=== PATIENT | female | born 1955 | race Caucasian/White ===

== ENCOUNTER 2023-05-22 15:41 | Emergency (ER) | payer MEDICARE ==
[2023-05-22 16:18] VITALS: TEMP 97.7
[2023-05-22] MEDS ORDERED: SODIUM CHLORIDE 0.9% 1,000 ML IV STA (16:32)
--- NOTE | 2023-05-22 16:32 | ED ---
Recheck HPI - General Chief Complaint: Urogenital Stated Complaint: UTI Time Seen by Provider: 05/22/23 16:32 Source: patient, RN notes reviewed, old records reviewed Mode of arrival: ambulatory Limitations: no limitations - History of Present Illness Initial Comments: This is a 67-year-old female to the emergency department today for evaluation of what feels like urinary tract infection with history of same. Patient has no doctor in the area that is able to get her in this week and she presents to the emergency department for evaluation of persistent UTI dysuria without fever MD Complaint: abnormal lab -: days(s) Returns Today for: Called Because of Abnormal Lab/Test, persistent/worsening pain related to initial visit Symptoms Since Prior Visit: no new symptoms Context: planned re-check Associated Symptoms: none Treatments Prior to Arrival: other (0) - Related Data Home Medications Medication Instructions Recorded Confirmed Atorvastatin [Lipitor] 10 mg PO HS 05/22/23 05/22/23 FLUoxetine HCL [PROzac] 10 mg PO DAILY 05/22/23 05/22/23 lisinopriL [Zestril] 10 mg PO DAILY 05/22/23 05/22/23 metFORMIN HCL 1,000 mg PO BID 05/22/23 05/22/23 Previous Rx's Medication Instructions Recorded Nitrofurantoin Monohyd/M-Cryst 100 mg PO Q12HR #10 cap 05/22/23 [Macrobid] Allergies Allergy/AdvReac Type Severity Reaction Status Date / Time No Known Allergies Allergy Verified 05/22/23 16:56 Review of Systems ROS Statement: Those systems with pertinent positive or pertinent negative responses have been documented in the HPI. ROS Other: All systems not noted in ROS Statement are negative. Past Medical History Past Medical History: COPD, Diabetes Mellitus Past Surgical History: Hysterectomy, Tonsillectomy Past Psychological History: No Psychological Hx Reported Smoking Status: Former smoker Past Alcohol Use History: Rare Past Drug Use History: None Reported General Exam Limitations: no limitations General appearance: alert, in no apparent distress Head exam: Present: atraumatic, normocephalic, normal inspection Eye exam: Present: normal appearance, PERRL, EOMI. Absent: scleral icterus, conjunctival injection, periorbital swelling ENT exam: Present: normal exam, mucous membranes moist Neck exam: Present: normal inspection. Absent: tenderness, meningismus, lymphadenopathy Respiratory exam: Present: normal lung sounds bilaterally. Absent: respiratory distress, wheezes, rales, rhonchi, stridor Cardiovascular Exam: Present: regular rate, normal rhythm, normal heart sounds. Absent: systolic murmur, diastolic murmur, rubs, gallop, clicks GI/Abdominal exam: Present: soft, normal bowel sounds. Absent: distended, tenderness, guarding, rebound, rigid Extremities exam: Present: normal inspection, full ROM, normal capillary refill. Absent: tenderness, pedal edema, joint swelling, calf tenderness Back exam: Present: normal inspection Neurological exam: Present: alert, oriented X3, CN II-XII intact Psychiatric exam: Present: normal affect, normal mood Skin exam: Present: warm, dry, intact, normal color. Absent: rash Course Vital Signs 05/22/23 05/22/23 15:59 18:17 Temperature 97.7 F Pulse Rate 82 79 Respiratory 20 18 Rate Blood Pressure 136/50 132/64 O2 Sat by Pulse 94 L 96 Oximetry - Reevaluation(s) Reevaluation #1: 05/22/23 18:01 Medical records reviewed Reevaluation #2: 05/22/23 18:01 Patient has no change in symptoms Reevaluation #3: 05/22/23 18:01 Patient informed results questions answered Reevaluation #4: 05/22/23 18:01 Was pt. sent in by a medical professional or institution (TOBY Campa, ACCOUNT RESOLUTION SPECIALIST, urgent care, hospital, or snf...) When possible be specific @ -no Did you speak to anyone other than the patient for history (EMS, parent, family, police, friend...)? What history was obtained from this source @ -no Did you review nursing and triage notes (agree or disagree)? Why? @ -agree Are old charts reviewed (outside hosp., previous admission, EMS record, old EKG, old radiological studies, urgent care reports/EKG's, snf records)? Report findings @ -yes Differential Diagnosis (chest pain, altered mental status, abdominal pain women, abdominal pain men, vaginal bleeding, weakness, fever, dyspnea, syncope, headache, dizziness, GI bleed, back pain, seizure, CVA, palpatations, mental health, musculoskeletal)? @ -prior EKG interpreted by me (3pts min.). @ -no X-rays interpreted by me (1pt min.). @ -no CT interpreted by me (1pt min.). @ -no U/S interpreted by me (1pt. min.). @ -no What testing was considered but not performed or refused? (CT, X-rays, U/S, labs)? Why? @ -none What meds were considered but not given or refused? Why? @ -none Did you discuss the management of the patient with other professionals (professionals i.e. , PA, ACCOUNT RESOLUTION SPECIALIST, lab, RT, psych nurse, social media content manager, offc spec, teacher, fundraising officer, case packer)? Give summary @ -no Was smoking cessation discussed for >3mins.? @ -no Was critical care preformed (if so, how long)? @ -no Were there social determinants of health that impacted care today? How? (Homelessness, low income, unemployed, alcoholism, drug addiction, t ransportation, low edu. Level, literacy, decrease access to med. care, correction, rehab)? @ -none Was there de-escalation of care discussed even if they declined (Discuss DNR or withdrawal of care, Hospice)? DNR status @ -no What co-morbidities impacted this encounter? (DM, HTN, Smoking, COPD, CAD, Cancer, CVA, ARF, Chemo, Hep., AIDS, mental health diagnosis, sleep apnea, morbid obesity)? @ -none Was patient admitted / discharged? Hospital course, mention meds given and route, prescriptions, significant lab abnormalities, going to OR and other pertinent info. @ - 67 female to the emergency department for evaluation of urinary tract infection symptoms. Patient replacement antibiotics and can be discharged home Discharge Undiagnosed new problem with uncertain prognosis? @ -no Drug Therapy requiring intensive monitoring for toxicity (Heparin, Nitro, Insulin, Cardizem)? @ -no Were any procedures done? @ -no Diagnosis/symptom? @ -UTI Acute, or Chronic, or Acute on Chronic? @ -Acute Uncomplicated (without systemic symptoms) or Complicated (systemic symptoms)? @ -Complicated Side effects of treatment? @ -no Exacerbation, Progression, or Severe Exacerbation? @ -exacerbation Poses a threat to life or bodily function? How? (Chest pain, USA, CT, pneumonia, PE, COPD, DKA, ARF, appy, cholecystitis, CVA, Diverticulitis, Homicidal, Suicidal, threat to staff... and all critical care pts) @ -No Medical Decision Making - Medical Decision Making 67 female to the emergency department for evaluation of urinary tract infection symptoms. Patient replacement antibiotics and can be discharged home - Lab Data Lab Results 05/22/23 Range/Units 16:41 Urine Color [place] Urine Appearance Clear (Clear) Urine RBC 10 H (0-5) /hpf Urine WBC >182 H (0-5) /hpf Ur Squamous Epith Cells 2 (0-4) /hpf Uric Acid Crystals Many H (None) /hpf Amorphous Sediment Rare H (None) /hpf Urine Bacteria Rare H (None) /hpf Urine Mucus Rare H (None) /hpf Disposition Clinical Impression: Urinary tract infection Disposition: HOME SELF-CARE Condition: Good Instructions (If sedation given, give patient instructions): Urinary Tract Infection in Women (ED) Prescriptions: Nitrofurantoin Monohyd/M-Cryst [Macrobid] 100 mg PO Q12HR #10 cap Is patient prescribed a controlled substance at d/c from ED?: No Referrals: None,Stated [Primary Care Provider] - 1-2 days Time of Disposition: 18:00
[2023-05-22 17:37] LABS: Amorphous Sediment,Urine Rare /hpf; Bacteria,Urine Rare /hpf; Mucus,Urine Rare /hpf; RBC,Urine 10 /hpf (0-5); Squamous Epithelial Cell,Urine 2 /hpf (0-4); Uric Acid Crystals,Urine Many /hpf; WBC,Urine >182 /hpf (0-5)
[2023-05-22 17:38] LABS: Appearance,Urine Clear (Clear); Color,Urine Orange
[2023-05-22] MEDS ORDERED: NITROFURANTOIN MONOHYD/M-CRYST 100 MG CAP PO STA (18:11)
[2023-05-22 18:26] VITALS: BP 132/64; PULSE 79; RESP 18
== END 2023-05-22 18:17 | disposition home or self-care (01) ==
LOC: EC 15:41
DX: N39.0 Urinary tract infection, site not specified (principal); E11.9 Type 2 diabetes mellitus without complications; J44.9 Chronic obstructive pulmonary disease, unspecified; Z87.891 Personal history of nicotine dependence; Z79.84 Long term (current) use of oral hypoglycemic drugs; Z79.899 Other long term (current) drug therapy
CPT/HCPCS: 81001; 99284

== ENCOUNTER → 2023-10-20 | Outpatient (CLI) | payer MEDICARE ==
--- NOTE | 2023-10-20 16:20 | CTL ---
EXAMINATION TYPE: CT Low Dose Lung DATE OF EXAM ORDERED: 10/20/2023 HISTORY: . Lung cancer screening CT DLP: 91.[address] CTDI: 2.6 mGy Automated exposure control for dose reduction was used. SCREENING VISIT: Initial. COMPARISON: None available. TECHNIQUE: Low dose computed tomography scan was performed through the chest at 1 mm thick sections a nd reconstructed images in multiple planes at 1 mm and [address] DIAGNOSTIC QUALITY: Satisfactory FINDINGS: LUNG NODULES: LUNGS: COPD: Severity: Mild upper lobe predominant centrilobular emphysema. Fibrosis: Severity: None Lymph nodes: No adenopathy. Other findings: RIGHT PLEURAL SPACE: Effusion: None Calcification: None Thickening: None Pneumothorax: None LEFT PLEURAL SPACE: Effusion: None Calcification: None Thickening: None Pneumothorax: None HEART: Heart Size: Normal Coronary Calcification: There are moderate coronary artery calcifications. Mild vascular calcificatio n is seen within the thoracic aorta without evidence of aneurysmal dilation Pericardial Effusion: None OTHER FINDINGS: Upper abdomen: None Bony thorax: None Supraclavicular region: None Other: None IMPRESSION: 1. Negative lung cancer screening examination for significant pulmonary nodules. 2. Mild emphysema. 3. Moderate coronary artery calcification. CT LUNG RAD AND CT CHEST RECOMMENDATION: Lung-Rad 1 Negative: Continue annual screening with LDCT in 12 months.
== END | disposition home or self-care (01) ==
LOC: RADCTMAIN 15:31
PROVIDERS: ATTEND Family Medicine
DX: Z12.2 Encounter for screening for malignant neoplasm of respiratory organs (principal); J43.2 Centrilobular emphysema; I25.10 Atherosclerotic heart disease of native coronary artery without angina pectoris; Z87.891 Personal history of nicotine dependence
CPT/HCPCS: 71271

== ENCOUNTER → 2023-10-20 | Outpatient (CLI) | payer MEDICARE ==
--- NOTE | 2023-10-21 15:57 | XR ---
EXAMINATION TYPE: XR thoracic spine 3 views DATE OF EXAM: 10/20/2023 COMPARISON: NONE HISTORY: 68-year-old female pain, rule out RA. M47.814 SPONDYLOSIS W/O MYELOPATHY OR RADICULOPATH FINDINGS: 12 rib-bearing thoracic vertebral bodies are present. All pedicles are visualized. There is moderate degenerative disc disease mid to lower thoracic spine with a few levels of anterior bridgin g endplate spondylosis in the lower thoracic spine. Vertebral body heights are preserved and alignmen t is maintained. Additional moderate spondylotic changes in the visualized lower cervical spine. IMPRESSION: Moderate degenerative disc disease mid to lower thoracic spine and also within the visualized lower c ervical spine. No vertebral compression collapse or malalignment.
== END | disposition home or self-care (01) ==
LOC: RADXRMAIN 15:33
PROVIDERS: ATTEND Family Medicine
DX: M51.34 Other intervertebral disc degeneration, thoracic region (principal); M47.814 Spondylosis without myelopathy or radiculopathy, thoracic region
CPT/HCPCS: 72070

== ENCOUNTER 2023-11-13 16:14 | Emergency (ER) | payer MEDICARE ==
[2023-11-13] MEDS: SODIUM CHLORIDE 0.9% 500 ML 500 ML IV STA (17:25)
[2023-11-13] MEDS: methylPREDNISolone SOD SUCCI 125 MG/2 ML VIAL IV STA (17:26)
[2023-11-13 17:27] VITALS: BP 167/72; PULSE 74; RESP 18; TEMP 97.8
[2023-11-13 17:27] LABS: Amorphous Sediment,Urine Rare /hpf; Appearance,Urine Cloudy (Clear); Bacteria,Urine Rare /hpf; Bilirubin,Urine Negative (Negative); Blood,Urine Trace (Negative); Color,Urine Dark Yellow; Glucose,Urine (UA) Negative (Negative); Ketones,Urine Negative (Negative); Leukocyte Esterase,Urine Large (Negative); Mucus,Urine Rare /hpf; Nitrite,Urine Negative (Negative); PH, Urine 7.5 (5.0-8.0); Protein,Urine Trace (Negative); RBC,Urine 2 /hpf (0-5); Specific Gravity,Urine 1.017 (1.001-1.035); Urobilinogen,Urine <2.0 mg/dL (<2.0); WBC,Urine >182 /hpf (0-5)
[2023-11-13 17:33] LABS: Basophils # (A) 0.1 k/uL (0-0.2); Basophils % (A) 1 %; Eosinophils # (A) 0.2 k/uL (0-0.7); Eosinophils % (A) 3 %; HCT 36.7 % (34.0-46.0); HGB 11.8 gm/dL (11.4-16.0); Lymphocytes # (A) 2.2 k/uL (1.0-4.8); Lymphocytes % (A) 32 %; MCH 30.4 pg (25.0-35.0); MCHC 32.2 g/dL (31.0-37.0); MCV 94.7 fL (80.0-100.0); Mean Platelet Volume 7.4; Monocytes # (A) 0.5 k/uL (0-1.0); Monocytes % (A) 8 %; Neutrophils # (A) 3.6 k/uL (1.3-7.7); Neutrophils % (A) 53 %; Platelet Count 393 k/uL (150-450); RBC 3.87 m/uL (3.80-5.40); WBC 6.7 k/uL (3.8-10.6)
[2023-11-13 17:34] LABS: INR 0.9 (<1.2)
[2023-11-13 17:35] LABS: Partial Thromboplastin Time 27.7 sec (22.0-30.0); Prothrombin Time 9.7 sec (10.0-12.5)
--- NOTE | 2023-11-13 17:40 | XR ---
EXAMINATION TYPE: XR chest 2V DATE OF EXAM: 11/13/2023 COMPARISON: NONE HISTORY: Shortness of breath TECHNIQUE: Frontal and lateral views of the chest are obtained. FINDINGS: Scattered senescent parenchymal changes noted. Hyperinflation compatible with COPD. No evidence for infiltrate. No evidence for atelectasis. Heart size is stable. Mediastinal structures are stable and grossly unremarkable. No evidence for hilar prominence. Degenerative changes dorsal spine. IMPRESSION: 1. No evidence for acute pulmonary disease.
[2023-11-13 17:42] LABS: ALT 24 U/L (4-34); AST 27 U/L (14-36); African American GFR (CKD) >90 (>60 ml/min/1.73 sqM); Albumin 4.6 g/dL (3.5-5.0); Alkaline Phosphatase 92 U/L (38-126); Anion Gap 9 mmol/L; Blood Urea Nitrogen 23 mg/dL (7-17); Calcium 9.9 mg/dL (8.4-10.2); Carbon Dioxide 26 mmol/L (22-30); Chloride 104 mmol/L (98-107); Glucose 94 mg/dL (74-99); Magnesium 1.6 mg/dL (1.6-2.3); Non-African American GFR(CKD) >90 (>60 ml/min/1.73 sqM); Potassium 4.5 mmol/L (3.5-5.1); Sodium 139 mmol/L (137-145); Total Bilirubin 0.6 mg/dL (0.2-1.3); Total Protein 7.2 g/dL (6.3-8.2)
[2023-11-13 17:49] LABS: NT-Pro-B-Type Natriuretic Pept 178 pg/mL
--- NOTE | 2023-11-13 18:05 | ED ---
General Adult HPI - General Chief complaint: Shortness of Breath Stated complaint: Chest Pain Time Seen by Provider: 11/13/23 16:44 Source: patient, RN notes reviewed, old records reviewed Mode of arrival: wheelchair Limitations: no limitations - History of Present Illness Initial comments: Patient is a 68-year-old female past medical history remarkable for emphysema, COPD, diabetes who presents emergency department complaining of 2 primary complaints. Sent by her primary care provider for cardiac workup and screening D-dimer. Patient believes she has a UTI and has been having increased shortness of breath with a nonproductive cough. Denies any lower extremity swelling. Denies any abdominal pain, nausea, vomiting. Endorses dysuria and increased frequency. Denies any significant chest pain but states she occasionally has tightness. Was sent by PCP for cardiac workup. - Related Data Home Medications Medication Instructions Recorded Confirmed Atorvastatin [Lipitor] 10 mg PO HS 05/22/23 11/13/23 FLUoxetine HCL [PROzac] 10 mg PO DAILY 05/22/23 11/13/23 lisinopriL [Zestril] 10 mg PO HS 05/22/23 11/13/23 metFORMIN HCL 1,000 mg PO BID 05/22/23 11/13/23 Previous Rx's Medication Instructions Recorded Albuterol Inhaler [Ventolin Hfa 1 - 2 puff INHALATION Q6H PRN #1 11/13/23 Inhaler] each levoFLOXacin 500 mg PO DAILY 14 Days #14 tab 11/13/23 predniSONE [Deltasone] 40 mg PO DAILY 5 Days #10 tab 11/13/23 Allergies Allergy/AdvReac Type Severity Reaction Status Date / Time No Known Allergies Allergy Verified 11/13/23 17:20 Review of Systems ROS Statement: Those systems with pertinent positive or pertinent negative responses have been documented in the HPI. Review of Systems: CONST: Denies fever EYES: Denies blurry vision ENT: Endorses nasal congestion C/V: Denies Chest pain RESP: Endorses dyspnea GI: Denies abdominal pain : Endorses dysuria SKIN: Denies rash. MSK: Denies joint pain. NEURO: Denies headache ROS Other: All systems not noted in ROS Statement are negative. Past Medical History Past Medical History: COPD, Diabetes Mellitus History of Any Multi-Drug Resistant Organisms: None Reported Past Surgical History: Hysterectomy, Tonsillectomy Past Psychological History: Depression Smoking Status: Former smoker Past Alcohol Use History: Rare Past Drug Use History: None Reported General Exam - General Exam Comments Initial Comments: General: Appears in no acute distress. HEAD: Normal with no signs of head trauma. EYES: PERRLA, EOMI, conjunctiva normal, no discharge. ENT: Hearing grossly intact, normal oropharynx. RESPIRATORY: Bilateral end expiratory wheezing. No hypoxia. No increased work of breathing. C/V: Regular rate and rhythm. S1 and S2 auscultated, no edema, peripheral pulses 2+ and intact throughout ABD: Abd is soft, nontender, nondistended EXT: Normal range of motion, no obvious deformity SKIN: No rashes or lesions observed on exposed skin. NEURO: Alert and oriented x 4. Limitations: no limitations Course Vital Signs 11/13/23 16:15 Temperature 97.8 F Pulse Rate 74 Respiratory 18 Rate Blood Pressure 167/72 O2 Sat by Pulse 95 Oximetry Medical Decision Making - Medical Decision Making Was pt. sent in by a medical professional or institution (, PA, SEWER LINE PHOTO INSPECTOR, urgent care, hospital, or fpc...) When possible be specific @ -No Did you speak to anyone other than the patient for history (EMS, parent, family, police, friend...)? What history was obtained from this source @ -No Did you review nursing and triage notes (agree or disagree)? Why? @ -I reviewed and agree with nursing and triage notes Were old charts reviewed (outside hosp., previous admission, EMS record, old EKG, old radiological studies, urgent care reports/EKG's, fpc records)? Report findings @ -Old charts reviewed. Differential Diagnosis (chest pain, altered mental status, abdominal pain women, abdominal pain men, vaginal bleeding, weakness, fever, dyspnea, syncope, headache, dizziness, GI bleed, back pain, seizure, CVA, palpatations, mental health, musculoskeletal)? @ -COPD, COVID, flu, RSV. This list is not all inclusive. EKG interpreted by me (3pts min.). @ -As above X-rays interpreted by me (1pt min.). @ -Chest x-ray shows no obvious acute cardiopulmonary process. CT interpreted by me (1pt min.). @ -None done U/S interpreted by me (1pt. min.). @ -None done What testing was considered but not performed or refused? (CT, X-rays, U/S, labs)? Why? @ -None What meds were considered but not given or refused? Why? @ -None Did you discuss the management of the patient with other professionals (professionals i.e. , PA, SEWER LINE PHOTO INSPECTOR, lab, RT, psych nurse, social work administrator, molding plasterer, teacher, home school liaison officer, telehealth case manager)? Give summary @ -No Was smoking cessation discussed for >3mins.? @ -No Was critical care preformed (if so, how long)? @ -No Were there social determinants of health that impacted care today? How? (Homeles sness, low income, unemployed, alcoholism, drug addiction, transportation, low edu. Level, literacy, decrease access to med. care, longterm, rehab)? @ -No Was there de-escalation of care discussed even if they declined (Discuss DNR or withdrawal of care, Hospice)? DNR status @ -No What co-morbidities impacted this encounter? (DM, HTN, Smoking, COPD, CAD, Cancer, CVA, ARF, Chemo, Hep., AIDS, mental health diagnosis, sleep apnea, morbid obesity)? @ -None Was patient admitted / discharged? Hospital course, mention meds given and route, prescriptions, significant lab abnormalities, going to OR and other pertinent info. @ -Based on patient's presentation and physical exam, patient presents emerge ncy department complaining of UTI complaints and possible upper respiratory symptoms. Vital signs are within acceptable limits. Patient's PCP sent here for cardiac workup. We will obtain cardiac workup at the request including screening D-dimer. Patient will be symptomatically treated with albuterol inhaler, IV steroids, as well as a 500 cc fluid bolus. Patient was in agreement this plan. No significant respiratory distress. EKG showed no signs of acute ischemia. Chest x-ray reveals no obvious acute cardiopulmonary process. Laboratory studies remarkable for D-dimer within acceptable limits, undetectable troponin, BNP within acceptable limits. Patient does have a UTI. Urine culture sent. I discussed with the patient and she is feeling improved at this time. I would like to cover the patient for COPD exacerbation with prednisone as well as albuterol inhaler for home. She also be started on Levaquin which should cover her UTI as well as tracheobronchitis. Patient was in agreement this plan. I will provide the patient with a prescription for albuterol, prednisone, Levaquin. I instructed the patient to follow up with their PCP in the next 1-3 days.. I explained that the patient should return to the emergency department if they experience any worsening symptoms. Strict return precautions were discussed with the patient. The patient expressed understanding of these ins tructions. I answered all questions that the patient had. The patient was discharged home in good condition with their prescriptions and follow up information. Undiagnosed new problem with uncertain prognosis? @ -No Drug Therapy requiring intensive monitoring for toxicity (Heparin, Nitro, Insulin, Cardizem)? @ -No Were any procedures done? @ -No Diagnosis/symptom? @ -COPD, UTI Acute, or Chronic, or Acute on Chronic? @ -Acute Uncomplicated (without systemic symptoms) or Complicated (systemic symptoms)? @ -Complicated Side effects of treatment? @ -No Exacerbation, Progression, or Severe Exacerbation? @ -No Poses a threat to life or bodily function? How? (Chest pain, USA, [place], pneumonia, PE, COPD, DKA, ARF, appy, cholecystitis, CVA, Diverticulitis, Homicidal, Suicidal, threat to staff... and all critical care pts) @ -Unlikely - Lab Data Result diagrams: 11/13/23 17:00 11/13/23 17:00 Lab Results 11/13/23 11/13/23 11/13/23 Range/Units 17:00 17:00 17:00 WBC 6.7 (3.8-10.6) k/uL RBC 3.87 (3.80-5.40) m/uL Hgb 11.8 (11.4-16.0) gm/dL Hct 36.7 (34.0-46.0) % MCV 94.7 (80.0-100.0) fL MCH 30.4 (25.0-35.0) pg MCHC 32.2 (31.0-37.0) g/dL RDW 14.0 (11.5-15.5) % Plt Count 393 (150-450) k/uL MPV 7.4 Neutrophils % 53 % Lymphocytes % 32 % Monocytes % 8 % Eosinophils % 3 % Basophils % 1 % Neutrophils # 3.6 (1.3-7.7) k/uL Lymphocytes # 2.2 (1.0-4.8) k/uL Monocytes # 0.5 (0-1.0) k/uL Eosinophils # 0.2 (0-0.7) k/uL Basophils # 0.1 (0-0.2) k/uL PT 9.7 L (10.0-12.5) sec INR 0.9 (<1.2) APTT 27.7 (22.0-30.0) sec D-Dimer 0.46 (<0.60) mg/L FEU Sodium (137-145) mmol/L Potassium (3.5-5.1) mmol/L Chloride (98-107) mmol/L Carbon Dioxide (22-30) mmol/L Anion Gap mmol/L BUN (7-17) mg/dL Creatinine (0.52-1.04) mg/dL Est GFR (CKD-EPI)AfAm (>60 ml/min/1.73 sqM) Est GFR (CKD-EPI)NonAf (>60 ml/min/1.73 sqM) Glucose (74-99) mg/dL Calcium (8.4-10.2) mg/dL Magnesium (1.6-2.3) mg/dL Total Bilirubin (0.2-1.3) mg/dL AST (14-36) U/L ALT (4-34) U/L Alkaline Phosphatase (38-126) U/L Troponin I (0.000-0.034) ng/mL NT-Pro-B Natriuret Pep pg/mL Total Protein (6.3-8.2) g/dL Albumin (3.5-5.0) g/dL Urine Color Dark Yellow Urine Appearance Cloudy H (Clear) Urine pH 7.5 (5.0-8.0) Ur Specific [place] 1.017 (1.001-1.035) Urine Protein Trace H (Negative) Urine Glucose (UA) Negative (Negative) Urine Ketones Negative (Negative) Urine Blood Trace H (Negative) Urine Nitrite Negative (Negative) Urine Bilirubin Negative (Negative) Urine Urobilinogen <2.0 (<2.0) mg/dL Ur Leukocyte Esterase Large H (Negative) Urine RBC 2 (0-5) /hpf Urine WBC >182 H (0-5) /hpf Urine WBC Clumps Rare H (None) /hpf Amorphous Sediment Rare H (None) /hpf Urine Bacteria Rare H (None) /hpf Urine Mucus Rare H (None) /hpf Influenza Type A (PCR) (Not Detectd) Influenza Type B (PCR) (Not Detectd) RSV (PCR) (Not Detectd) SARS-CoV-2 (PCR) (Not Detectd) 11/13/23 11/13/23 11/13/23 Range/Units 17:00 17:00 17:00 WBC (3.8-10.6) k/uL RBC (3.80-5.40) m/uL Hgb (11.4-16.0) gm/dL Hct (34.0-46.0) % MCV (80.0-100.0) fL MCH (25.0-35.0) pg MCHC (31.0-37.0) g/dL RDW (11.5-15.5) % Plt Count (150-450) k/uL MPV Neutrophils % % Lymphocytes % % Monocytes % % Eosinophils % % Basophils % % Neutrophils # (1.3-7.7) k/uL Lymphocytes # (1.0-4.8) k/uL Monocytes # (0-1.0) k/uL Eosinophils # (0-0.7) k/uL Basophils # (0-0.2) k/uL PT (10.0-12.5) sec INR (<1.2) APTT (22.0-30.0) sec D-Dimer (<0.60) mg/L FEU Sodium 139 (137-145) mmol/L Potassium 4.5 (3.5-5.1) mmol/L Chloride 104 (98-107) mmol/L Carbon Dioxide 26 (22-30) mmol/L Anion Gap 9 mmol/L BUN 23 H (7-17) mg/dL Creatinine 0.67 (0.52-1.04) mg/dL Est GFR (CKD-EPI)AfAm >90 (>60 ml/min/1.73 sqM) Est GFR (CKD-EPI)NonAf >90 (>60 ml/min/1.73 sqM) Glucose 94 (74-99) mg/dL Calcium 9.9 (8.4-10.2) mg/dL Magnesium 1.6 (1.6-2.3) mg/dL Total Bilirubin 0.6 (0.2-1.3) mg/dL AST 27 (14-36) U/L ALT 24 (4-34) U/L Alkaline Phosphatase 92 (38-126) U/L Troponin I <0.012 (0.000-0.034) ng/mL NT-Pro-B Natriuret Pep 178 pg/mL Total Protein 7.2 (6.3-8.2) g/dL Albumin 4.6 (3.5-5.0) g/dL Urine Color Urine Appearance (Clear) Urine pH (5.0-8.0) Ur Specific [place] (1.001-1.035) Urine Protein (Negative) Urine Glucose (UA) (Negative) Urine Ketones (Negative) Urine Blood (Negative) Urine Nitrite (Negative) Urine Bilirubin (Negative) Urine Urobilinogen (<2.0) mg/dL Ur Leukocyte Esterase (Negative) Urine RBC (0-5) /hpf Urine WBC (0-5) /hpf Urine WBC Clumps (None) /hpf Amorphous Sediment (None) /hpf Urine Bacteria (None) /hpf Urine Mucus (None) /hpf Influenza Type A (PCR) Not Detected (Not Detectd) Influenza Type B (PCR) Not Detected (Not Detectd) RSV (PCR) Not Detected (Not Detectd) SARS-CoV-2 (PCR) Not Detected (Not Detectd) - EKG Data -: EKG Interpreted by Me EKG Comments: 12-lead Electrocardiogram Interpretation Note EKG was reviewed and interpreted by myself. 12-lead ECG performed at 1630 is interpreted by me as revealing normal sinus rhythm at a rate of 71 beats per minute. [place] is normal. [place] interval is 134 ms, QRS duration is 82 ms, QTc is 431 ms.. There were no ST or T wave abnormalities to suggest myocardial ischemia or injury. R wave progression across the precordium was satisfactory. By my interpretation this EKG is non-diagnostic for acute ischemia. Disposition Clinical Impression: COPD (chronic obstructive pulmonary disease), UTI (urinary tract infection) Disposition: HOME SELF-CARE Condition: Good Instructions (If sedation given, give patient instructions): Urinary Tract Infection in Women (ED), Acute Bronchitis (ED), COPD (Chronic Obstructive Pulmonary Disease) (ED) Prescriptions: predniSONE [Deltasone] 40 mg PO DAILY 5 Days #10 tab levoFLOXacin 500 mg PO DAILY 14 Days #14 tab Albuterol Inhaler [Ventolin Hfa Inhaler] 1 - 2 puff INHALATION Q6H PRN #1 each PRN Reason: Dyspnea Is patient prescribed a controlled substance at d/c from ED?: No Referrals: Kristina Lema MD [Primary Care Provider] - 1-2 days Time of Disposition: 18:35
[2023-11-13] MEDS: IPRATROPIUM-ALBUTEROL 3 ML NEB INHALATION STA (18:39)
[2023-11-13] MEDS: LEVOFLOXACIN 500 MG TAB PO STA (19:03)
[2023-11-13] MEDS: ALBUTEROL HFA INHALER INHALATION STA (19:24)
== END 2023-11-13 19:25 | disposition home or self-care (01) ==
LOC: EC 16:14
DX: J44.9 Chronic obstructive pulmonary disease, unspecified (principal); N39.0 Urinary tract infection, site not specified; B96.4 Proteus (mirabilis) (morganii) as the cause of diseases classified elsewhere; J43.9 Emphysema, unspecified; Z87.891 Personal history of nicotine dependence
CPT/HCPCS: 99285; 96374; 36415; 93005; 85379; 83880; 80053; 83735; 84484; 85025; 85610; 85730; 81001; 87086; 87077; 87186; 87636; 71046; J2930

== ENCOUNTER → 2023-12-09 | Outpatient (CLI) | payer MEDICARE ==
[2023-12-09 15:17] LABS: African American GFR (CKD) >90 (>60 ml/min/1.73 sqM); Blood Urea Nitrogen 25 mg/dL (7-17); Non-African American GFR(CKD) >90 (>60 ml/min/1.73 sqM)
--- NOTE | 2023-12-09 16:55 | CT ---
EXAMINATION TYPE: CT abdomen pelvis w con CT DLP: 813.9 mGycm, Automated exposure control for dose reduction was used. DATE OF EXAM: 12/09/2023 4:35 PM COMPARISON: None. CLINICAL INDICATION:Female, 68 years old with history of N39.0 RECURRENT UTI; Reoccurent UTI x years TECHNIQUE: Axial CT abdomen pelvis w con;Sagittal and coronal reformats were created on a separate w orkstation. Contrast used:100ml mL of Isovue 300 with IV Contrast, (none if empty) Oral contrast used: with Oral Contrast (none if empty) FINDINGS: LOWER CHEST: Unremarkable ABDOMEN LIVER: Unremarkable GALLBLADDER AND BILE DUCTS: Unremarkable. PANCREAS: Unremarkable. SPLEEN: Unremarkable. ADRENAL GLANDS: Unremarkable. KIDNEYS AND URETERS: No evidence of hydronephrosis or renal calculus. The ureters are unremarkable. Bilateral renal cortical cysts PELVIS BLADDER: Unremarkable REPRODUCTIVE: Uterus appears surgically absent. ABDOMEN & PELVIS STOMACH AND BOWEL: No evidence of bowel obstruction. Appendix is normal. PERITONEUM/RETROPERITONEUM: No evidence of pneumoperitoneum or free fluid. VASCULATURE: No evidence of aortic aneurysm. MUSCULOSKELETAL: No acute osseous abnormalities LYMPH NODES: No gross evidence for lymphadenopathy. SOFT TISSUE/ABDOMINAL WALL: Fat-containing umbilical hernia. IMPRESSION: 1. No evidence for acute process. Urinary bladder and kidneys appear within normal limits. Scattered renal cortical cysts. 2. Colonic diverticulosis.
== END | disposition home or self-care (01) ==
LOC: RADCTMAIN 14:25
PROVIDERS: ATTEND Family Medicine
DX: K57.30 Diverticulosis of large intestine without perforation or abscess without bleeding (principal); N28.1 Cyst of kidney, acquired; N39.0 Urinary tract infection, site not specified
CPT/HCPCS: 82565; 84520; 74177; 36415; Q9967

== ENCOUNTER 2024-04-12 17:39 | Emergency (ER) | payer MEDICARE ==
--- NOTE | 2024-04-12 18:01 | ED ---
URI HPI - General Source: patient, RN notes reviewed Mode of arrival: ambulatory Limitations: no limitations <Ev Medley - Last Filed: 04/12/24 18:00> - General Source: patient, RN notes reviewed Mode of arrival: ambulatory Limitations: no limitations <Wendy Hill - Last Filed: 04/12/24 23:57> - General Chief Complaint: Weakness Stated Complaint: dehydration/uti Time Seen by Provider: 04/12/24 18:00 - History of Present Illness Initial Comments: Quick note: 68-year-old female presented to ER with a chief complaint of dehydration. Patient sent by PCP. Patient tested positive for COVID-19 today symptoms starting yesterday. She also states she has UTI per PCP. Patient reports intermittent fevers. Patient states she has been feeling dizzy and lightheaded. Denies any chest pain. (Ev Medley) This is a 68-year-old female who presents to the emergency department for weakness, dizziness, and body aches. States that symptoms started 1 to 2 days ago. She saw her primary care provider today and tested positive for COVID. She was advised to come to the emergency department for management of dehydration associated this. Additionally, she was told that she had a UTI and has been experiencing urinary symptoms. Unsure if they sent in a prescription for antibiotics. Reports associated nausea as well. (Wendy Hill) - Related Data Home Medications Medication Instructions Recorded Confirmed Atorvastatin [Lipitor] 10 mg PO HS 05/22/23 11/13/23 FLUoxetine HCL [PROzac] 10 mg PO DAILY 05/22/23 11/13/23 lisinopriL [Zestril] 10 mg PO HS 05/22/23 11/13/23 metFORMIN HCL 1,000 mg PO BID 05/22/23 11/13/23 Previous Rx's Medication Instructions Recorded Albuterol Inhaler [Ventolin Hfa 1 - 2 puff INHALATION Q6H PRN #1 11/13/23 Inhaler] each levoFLOXacin 500 mg PO DAILY 14 Days #14 tab 11/13/23 predniSONE [Deltasone] 40 mg PO DAILY 5 Days #10 tab 11/13/23 Ketorolac [Toradol] 10 mg PO Q6HR PRN #15 tab 04/12/24 Nirmatrelvir/Ritonavir [Paxlovid 1 pack PO BID 5 Days #30 tab 04/12/24 300-100 mg Dose Pack] Ondansetron Odt [Zofran Odt] 4 mg PO Q8HR PRN #15 tab 04/12/24 Sulfamethox-Tmp 800-160Mg [Bactrim 1 tab PO Q12HR 7 Days #14 tab 04/12/24 DS 800-160 mg] Allergies Allergy/AdvReac Type Severity Reaction Status Date / Time No Known Allergies Allergy Verified 04/12/24 18:08 Review of Systems ROS Other: All systems not noted in ROS Statement are negative. <Ev Medley - Last Filed: 04/12/24 18:00> ROS Other: All systems not noted in ROS Statement are negative. <Wendy Hill - Last Filed: 04/12/24 23:57> ROS Statement: Those systems with pertinent positive or pertinent negative responses have been documented in the HPI. Past Medical History Past Medical History: COPD, Diabetes Mellitus History of Any Multi-Drug Resistant Organisms: None Reported Past Surgical History: Hysterectomy, Tonsillectomy Past Psychological History: Depression Smoking Status: Former smoker Past Alcohol Use History: Rare Past Drug Use History: None Reported <Ev Medley - Last Filed: 04/12/24 18:00> General Exam <Ev Medley - Last Filed: 04/12/24 18:00> Limitations: no limitations General appearance: alert, in no apparent distress Head exam: Present: atraumatic, normocephalic, normal inspection Respiratory exam: Present: normal lung sounds bilaterally. Absent: respiratory distress, wheezes, rales, rhonchi, stridor Cardiovascular Exam: Present: regular rate, normal rhythm, normal heart sounds. Absent: systolic murmur, diastolic murmur, rubs, gallop, clicks GI/Abdominal exam: Present: soft, normal bowel sounds. Absent: distended, tenderness, guarding, rebound, rigid Neurological exam: Present: alert, oriented X3, CN II-XII intact Psychiatric exam: Present: normal affect, normal mood Skin exam: Present: warm, dry, intact, normal color. Absent: rash <Wendy Hill - Last Filed: 04/12/24 23:57> - General Exam Comments Initial Comments: Visual Physical Exam Vital signs reviewed General: Well-appearing, nontoxic, no acute distress. Head: Normocephalic, atraumatic Eyes: PERRLA, EOMI ENT: Airway patent Chest: Nonlabored breathing Skin: No visual rash, normal skin tone Neuro: Alert and oriented 3 Musculoskeletal: No gross abnormalities (Ev Medley) Course Vital Signs 04/12/24 04/12/24 18:06 22:46 Temperature 101.3 F H 99.4 F Pulse Rate 91 88 Respiratory 20 16 Rate Blood Pressure 117/3 118/64 O2 Sat by Pulse 94 L 94 L Oximetry Medical Decision Making <Ev Medley - Last Filed: 04/12/24 18:00> - Lab Data Result diagrams: 04/12/24 18:57 04/12/24 18:57 - Radiology Data Radiology results: report reviewed, image reviewed <Wendy Hill - Last Filed: 04/12/24 23:57> - Medical Decision Making I performed the quick note portion of this chart. Electronically signed by Ev Medley PA-C (Ev Medley) This is a 68 year old female who presents to the emergency department for dizziness. Was pt. sent in by a medical professional or institution? @ -Her PCP Did you speak to anyone other than the patient for history? @ -No Did you review nursing and triage notes? @ -Yes, and I agree, it is accurate with regards to the patient's symptoms. Were old charts reviewed? @ -No Differential Diagnosis? @ -Differential Dizziness: Benign paroxysmal positional Vertigo, Meniere's disease, otitis media, acoustic neuroma, vertebrobasilar insufficiency, cerebellar stroke, encephalitis, hyp ovolemic, arrhythmia, coronary artery syndrome, anemia, this is not meant to be an all-inclusive list EKG interpreted by me (3pts min.)? @ -EKG interpreted by me demonstrating the following: Sinus rhythm. Ventricular rate 97 bpm, [place] interval 108 ms, QRS duration 86 ms, QTc 412 ms. X-rays interpreted by me (1pt min.)? @ -Chest x-ray obtained, my interpretation identifies no localized consolidations or infiltrates. CT interpreted by me (1pt min.)? @ -Not obtained U/S interpreted by me (1pt. min.)? @ -Not obtained What testing was considered but not performed? (CT, X-rays, U/S, labs)? Why? @ -None What meds were considered but not given? Why? @ -None Did you discuss the management of the patient with other professionals? @ -No Did you reconcile home meds? @ -No Was smoking cessation discussed for >3mins.? @ -No Was critical care preformed (if so, how long)? @ -No Were there social determinants of health that impacted care today? How? (Homelessness, low income, unemployed, alcoholism, drug addiction, transportation, low edu. Level, literacy, decrease access to med. care, long-term, rehab)? @ -No Was there de-escalation of care discussed even if they declined? (Discuss DNR or withdrawal of care, Hospice)? @ -No What co-morbidities impacted this encounter? (DM, HTN, Smoking, COPD, CAD, Cancer, CVA, Hep., AIDS, mental health diagnosis, sleep apnea, morbid obesity)? @ -DM, COPD Was patient admitted / discharged? @ -Discharged. Lab work unremarkable. She was febrile on arrival. Patient positive for COVID-19. Urinalysis had a large amount of white blood cells, but could not be fully analyzed due to the dye from the medication she had been taking for urinary symptoms, likely AZO. Patient was treated with IV fluids and the fever and her symptoms well-controlled in the emergency department and she was comfortable with discharge home at that point. 1 g of Rocephin administered prior to discharge. Prescription for Bactrim provided for the UTI and Paxlovid was prescribed for the COVID-19. She was also given a prescription for Toradol and Zofran for further symptomatic management. Advised getting plenty rest and drinking plenty of fluids. Case discussed with ED attending Dr. Walters. Return precautions reviewed in depth, the patient is instructed to return to the emergency department with any new, worsening, or concerning symptoms. Patient verbalized understanding. Undiagnosed new problem with uncertain prognosis? @ -None Drug Therapy requiring intensive monitoring for toxicity (Heparin, Nitro, Insulin, Cardizem)? @ -None Were any procedures done? @ -None Diagnosis/symptom? @ -COVID-19, UTI Acute, or Chronic, or Acute on Chronic? @ -Acute Uncomplicated (without systemic symptoms) or Complicated (systemic symptoms)? @ -Complicated Side effects of treatment? @ -None Exacerbation, Progression, or Severe Exacerbation] @ -Not applicable Poses a threat to life or bodily function? @ -No (Wendy Hill) - Lab Data Lab Results 04/12/24 04/12/24 04/12/24 Range/Units 18:57 18:57 18:57 WBC 7.1 (3.8-10.6) k/uL RBC 4.02 (3.80-5.40) m/uL Hgb 12.2 (11.4-16.0) gm/dL Hct 36.7 (34.0-46.0) % MCV 91.1 (80.0-100.0) fL MCH 30.3 (25.0-35.0) pg MCHC 33.3 (31.0-37.0) g/dL RDW 13.5 (11.5-15.5) % Plt Count 254 (150-450) k/uL MPV 6.8 Neutrophils % 80 % Lymphocytes % 10 % Monocytes % 7 % Eosinophils % 1 % Basophils % 1 % Neutrophils # 5.7 (1.3-7.7) k/uL Lymphocytes # 0.7 L (1.0-4.8) k/uL Monocytes # 0.5 (0-1.0) k/uL Eosinophils # 0.1 (0-0.7) k/uL Basophils # 0.1 (0-0.2) k/uL Sodium 134 L (137-145) mmol/L Potassium 4.1 (3.5-5.1) mmol/L Chloride 100 (98-107) mmol/L Carbon Dioxide 24 (22-30) mmol/L Anion Gap 10 mmol/L BUN 15 (7-17) mg/dL Creatinine 0.67 (0.52-1.04) mg/dL Est GFR (CKD-EPI)AfAm >90 (>60 ml/min/1.73 sqM) Est GFR (CKD-EPI)NonAf >90 (>60 ml/min/1.73 sqM) Glucose 123 H (74-99) mg/dL Plasma Lactic Acid Seb 1.1 (0.7-2.0) mmol/L Calcium 10.0 (8.4-10.2) mg/dL Total Bilirubin 0.8 (0.2-1.3) mg/dL AST 29 (14-36) U/L ALT 17 (4-34) U/L Alkaline Phosphatase 72 (38-126) U/L Total Protein 7.6 (6.3-8.2) g/dL Albumin 5.0 (3.5-5.0) g/dL Urine Color Urine Appearance (Clear) Urine RBC (0-5) /hpf Urine WBC (0-5) /hpf Ur Squamous Epith Cells (0-4) /hpf Urine Mucus (None) /hpf Influenza Type A (PCR) (Not Detectd) Influenza Type B (PCR) (Not Detectd) RSV (PCR) (Not Detectd) SARS-CoV-2 (PCR) (Not Detectd) 04/12/24 04/12/24 Range/Units 20:48 20:48 WBC (3.8-10.6) k/uL RBC (3.80-5.40) m/uL Hgb (11.4-16.0) gm/dL Hct (34.0-46.0) % MCV (80.0-100.0) fL MCH (25.0-35.0) pg MCHC (31.0-37.0) g/dL RDW (11.5-15.5) % Plt Count (150-450) k/uL MPV Neutrophils % % Lymphocytes % % Monocytes % % Eosinophils % % Basophils % % Neutrophils # (1.3-7.7) k/uL Lymphocytes # (1.0-4.8) k/uL Monocytes # (0-1.0) k/uL Eosinophils # (0-0.7) k/uL Basophils # (0-0.2) k/uL Sodium (137-145) mmol/L Potassium (3.5-5.1) mmol/L Chloride (98-107) mmol/L Carbon Dioxide (22-30) mmol/L Anion Gap mmol/L BUN (7-17) mg/dL Creatinine (0.52-1.04) mg/dL Est GFR (CKD-EPI)AfAm (>60 ml/min/1.73 sqM) Est GFR (CKD-EPI)NonAf (>60 ml/min/1.73 sqM) Glucose (74-99) mg/dL Plasma Lactic Acid Seb (0.7-2.0) mmol/L Calcium (8.4-10.2) mg/dL Total Bilirubin (0.2-1.3) mg/dL AST (14-36) U/L ALT (4-34) U/L Alkaline Phosphatase (38-126) U/L Total Protein (6.3-8.2) g/dL Albumin (3.5-5.0) g/dL Urine Color [place] Urine Appearance Clear (Clear) Urine RBC 2 (0-5) /hpf Urine WBC 144 H (0-5) /hpf Ur Squamous Epith Cells 2 (0-4) /hpf Urine Mucus Occasional H (None) /hpf Influenza Type A (PCR) Not Detected (Not Detectd) Influenza Type B (PCR) Not Detected (Not Detectd) RSV (PCR) Not Detected (Not Detectd) SARS-CoV-2 (PCR) Detected A (Not Detectd) Disposition <Ev Medley - Last Filed: 04/12/24 18:00> Is patient prescribed a controlled substance at d/c from ED?: No Time of Disposition: 22:36 <Wendy Hill - Last Filed: 04/12/24 23:57> Clinical Impression: COVID-19, UTI (urinary tract infection) Disposition: HOME SELF-CARE Instructions (If sedation given, give patient instructions): Coronavirus Disease 2019 (COVID-19), How to Recover from COVID-19 at Home (ED) Additional Instructions: Return to the emergency department with any new, worsening, or concerning symptoms. Take the Paxlovid as prescribed for 5 days and the Bactrim as prescribed for 7 days. Take the Toradol with Tylenol as needed for pain relief. If you choose to take the Toradol, do not take any other anti-inflammatories such as ibuprofen, take one or the other. Take the Zofran up to every 8 hours as needed for nausea and vomiting. Prescriptions: Sulfamethox-Tmp 800-160Mg [Bactrim DS 800-160 mg] 1 tab PO Q12HR 7 Days #14 tab Nirmatrelvir/Ritonavir [Paxlovid 300-100 mg Dose Pack] 1 pack PO BID 5 Days #30 tab Ketorolac [Toradol] 10 mg PO Q6HR PRN #15 tab PRN Reason: Pain Ondansetron Odt [Zofran Odt] 4 mg PO Q8HR PRN #15 tab PRN Reason: Nausea And Vomiting Referrals: Kristina Lema MD [Primary Care Provider] - 1-2 days
--- NOTE | 2024-04-12 19:03 | XR ---
EXAMINATION TYPE: XR chest 2V DATE OF EXAM: 04/12/2024 6:36 PM CLINICAL INDICATION: Female, 68 years old with history of cough; [facility] COMPARISON: Chest radiographs from 11/13/2023 TECHNIQUE: XR chest 2V Frontal view of the chest. FINDINGS: Lungs/Pleura: There is flattening of the diaphragm with increased lucency of the lungs. No evidence o f pneumothorax, pleural effusion or focal consolidation. Pulmonary vascularity: Unremarkable. Heart/mediastinum: Cardiomediastinal silhouette is unremarkable. Musculoskeletal: No acute osseous pathology. IMPRESSION: 1. No acute cardiopulmonary disease process. 2. COPD changes.
[2024-04-12 19:05] LABS: Basophils # (A) 0.1 k/uL (0-0.2); Basophils % (A) 1 %; Eosinophils # (A) 0.1 k/uL (0-0.7); Eosinophils % (A) 1 %; HCT 36.7 % (34.0-46.0); HGB 12.2 gm/dL (11.4-16.0); Lymphocytes # (A) 0.7 k/uL (1.0-4.8); Lymphocytes % (A) 10 %; MCH 30.3 pg (25.0-35.0); MCHC 33.3 g/dL (31.0-37.0); MCV 91.1 fL (80.0-100.0); Mean Platelet Volume 6.8; Monocytes # (A) 0.5 k/uL (0-1.0); Monocytes % (A) 7 %; Neutrophils # (A) 5.7 k/uL (1.3-7.7); Neutrophils % (A) 80 %; Platelet Count 254 k/uL (150-450); RBC 4.02 m/uL (3.80-5.40); RDW 13.5 % (11.5-15.5); WBC 7.1 k/uL (3.8-10.6)
[2024-04-12 19:24] LABS: ALT 17 U/L (4-34); AST 29 U/L (14-36); African American GFR (CKD) >90 (>60 ml/min/1.73 sqM); Alkaline Phosphatase 72 U/L (38-126); Anion Gap 10 mmol/L; Blood Urea Nitrogen 15 mg/dL (7-17); Carbon Dioxide 24 mmol/L (22-30); Chloride 100 mmol/L (98-107); Glucose 123 mg/dL (74-99); Non-African American GFR(CKD) >90 (>60 ml/min/1.73 sqM); Potassium 4.1 mmol/L (3.5-5.1); Sodium 134 mmol/L (137-145); Total Bilirubin 0.8 mg/dL (0.2-1.3); Total Protein 7.6 g/dL (6.3-8.2)
[2024-04-12] MEDS: SODIUM CHLORIDE 0.9% 500 ML 500 ML IV STA (20:56)
[2024-04-12] MEDS: KETOROLAC 15 MG/ML 1 ML VIAL IVP STA (20:57)
[2024-04-12] MEDS: SODIUM CHLORIDE 0.9% 1,000 ML IV STA (20:57)
[2024-04-12] MEDS: ACETAMINOPHEN TAB 500 MG TAB PO STA (20:57)
[2024-04-12 21:14] LABS: Mucus,Urine Occasional /hpf; RBC,Urine 2 /hpf (0-5); Squamous Epithelial Cell,Urine 2 /hpf (0-4); WBC,Urine 144 /hpf (0-5)
[2024-04-12 21:15] LABS: Appearance,Urine Clear (Clear); Color,Urine Orange
[2024-04-12] MEDS: DEXAMETHASONE SOD PHOSPHATE 10 MG/ML 1 ML VIAL IVP STA (21:18)
[2024-04-12] MEDS: MORPHINE SULFATE 2 MG/ML SYRINGE IVP STA (21:18)
[2024-04-12] MEDS: ONDANSETRON 4 MG/2 ML VIAL IVP STA (21:18)
[2024-04-12 22:48] VITALS: BP 118/64; PULSE 88; RESP 16; TEMP 99.4
[2024-04-12] MEDS: cefTRIAXone IN SWFI 1,000 MG/10 ML SYRINGE IVP STA (22:52)
[2024-04-12] MEDS: ONDANSETRON 4 MG ODT STARTER PACK 2 TAB BTL PO STA (22:53)
[2024-04-12] MEDS: ACET/COD 300 MG/30 MG STARTER PACK 6 TAB BTL PO STA (22:53)
[2024-04-12] MEDS: IBUPROFEN 600 MG STARTER PACK 4 TAB BTL PO STA (22:53)
== END 2024-04-12 22:49 | disposition home or self-care (01) ==
LOC: EC 17:39
DX: U07.1 COVID-19 (principal); N39.0 Urinary tract infection, site not specified; Z87.891 Personal history of nicotine dependence
CPT/HCPCS: 36415; 93005; 80053; 83605; 85025; 81001; 87086; 87077; 87186; 87636; 71046; 99285; 96374; 96375 ×4; 96361; J1100; J2405; J2270; J1885; S0119; 99284

== ENCOUNTER 2024-04-15 15:57 | Inpatient (IN) | payer MEDICARE ==
--- NOTE | 2024-04-15 17:08 | ED ---
Abdominal Pain HPI - General Source: patient Mode of arrival: ambulatory Limitations: no limitations <Kari Maddox - Last Filed: 04/15/24 17:07> - General Source: patient, RN notes reviewed Mode of arrival: ambulatory Limitations: no limitations <Wendy Hill - Last Filed: 04/16/24 03:36> - General Chief Complaint: Abdominal Pain Stated Complaint: infection-UTI Time Seen by Provider: 04/15/24 17:07 - History of Present Illness Initial Comments: 68-year-old female who was contacted after her urine culture came back positive for ESBL. Patient is having lower back pain and nausea. No vomiting. (Kari Maddox) This is a 68-year-old female who presents to the emergency department for a positive urine culture. Patient was evaluated here 3 days ago and diagnosed w ith COVID-19 and a UTI. States that she received a call today stating that her urine culture came back positive for ESBL and she needed to be admitted for IV antibiotics. States that she has been having generalized lower back pain and nausea. Denies any abdominal pain or vomiting. She does complain of a headache as well. Does not believe that she is having any burning with urination or other urinary symptoms. Denies any fevers or chills. (Wendy Hill) - Related Data Home Medications Medication Instructions Recorded Confirmed Atorvastatin [Lipitor] 10 mg PO HS 05/22/23 11/13/23 FLUoxetine HCL [PROzac] 10 mg PO DAILY 05/22/23 11/13/23 lisinopriL [Zestril] 10 mg PO HS 05/22/23 11/13/23 metFORMIN HCL 1,000 mg PO BID 05/22/23 11/13/23 Previous Rx's Medication Instructions Recorded Albuterol Inhaler [Ventolin Hfa 1 - 2 puff INHALATION Q6H PRN #1 11/13/23 Inhaler] each levoFLOXacin 500 mg PO DAILY 14 Days #14 tab 11/13/23 predniSONE [Deltasone] 40 mg PO DAILY 5 Days #10 tab 11/13/23 Ketorolac [Toradol] 10 mg PO Q6HR PRN #15 tab 04/12/24 Nirmatrelvir/Ritonavir [Paxlovid 1 pack PO BID 5 Days #30 tab 04/12/24 300-100 mg Dose Pack] Ondansetron Odt [Zofran Odt] 4 mg PO Q8HR PRN #15 tab 04/12/24 Sulfamethox-Tmp 800-160Mg [Bactrim 1 tab PO Q12HR 7 Days #14 tab 04/12/24 DS 800-160 mg] Allergies Allergy/AdvReac Type Severity Reaction Status Date / Time No Known Allergies Allergy Verified 04/15/24 16:26 Review of Systems ROS Other: All systems not noted in ROS Statement are negative. <Kari Maddox - Last Filed: 04/15/24 17:07> ROS Other: All systems not noted in ROS Statement are negative. <Wendy Hill - Last Filed: 04/16/24 03:36> ROS Statement: Those systems with pertinent positive or pertinent negative responses have been documented in the HPI. Past Medical History Past Medical History: COPD, Diabetes Mellitus History of Any Multi-Drug Resistant Organisms: None Reported Past Surgical History: Hysterectomy, Tonsillectomy Past Psychological History: Depression Smoking Status: Former smoker Past Alcohol Use History: Rare Past Drug Use History: None Reported <Kari Maddox - Last Filed: 04/15/24 17:07> General Exam Limitations: no limitations <Kari Maddox - Last Filed: 04/15/24 17:07> Limitations: no limitations General appearance: alert, in no apparent distress Head exam: Present: atraumatic, normocephalic, normal inspection Respiratory exam: Present: normal lung sounds bilaterally. Absent: respiratory distress, wheezes, rales, rhonchi, stridor Cardiovascular Exam: Present: regular rate, normal rhythm, normal heart sounds. Absent: systolic murmur, diastolic murmur, rubs, gallop, clicks GI/Abdominal exam: Present: soft, normal bowel sounds. Absent: distended, tenderness, guarding, rebound, rigid Neurological exam: Present: alert, oriented X3, CN II-XII intact Psychiatric exam: Present: normal affect, normal mood Skin exam: Present: warm, dry, intact, normal color. Absent: rash <Wendy Hill - Last Filed: 04/16/24 03:36> - General Exam Comments Initial Comments: Visual Physical Exam Vital signs reviewed General: Well-appearing, nontoxic, no acute distress. Head: Normocephalic, atraumatic Eyes: PERRLA, EOMI ENT: Airway patent Chest: Nonlabored breathing Skin: No visual rash, normal skin tone Neuro: Alert and oriented 3 Musculoskeletal: No gross abnormalities (Kari Maddox) Course Vital Signs 04/15/24 04/15/24 04/16/24 16:23 23:26 03:00 Temperature 98.8 F 98.1 F Pulse Rate 69 56 L 70 Respiratory 18 16 16 Rate Blood Pressure 149/75 164/74 136/63 O2 Sat by Pulse 96 96 95 Oximetry Medical Decision Making <Kari Maddox - Last Filed: 04/15/24 17:07> - Lab Data Result diagrams: 04/15/24 17:02 04/15/24 17:02 <Wendy Hill - Last Filed: 04/16/24 03:36> - Medical Decision Making I performed the quick note portion of this visit, electronically signed Kari Maddox PA-C (Kari Maddox) This is a 68 year old female who presents to the emergency department for a positive urine culture. Was pt. sent in by a medical professional or institution? @ -No Did you speak to anyone other than the patient for history? @ -No Did you review nursing and triage notes? @ -Yes, and I agree, it is accurate with regards to the patient's symptoms. Were old charts reviewed? @ -Urine culture from 04/12/2024 returning as ESBL E. coli Differential Diagnosis? @ -Differential Back Pain: Strain, zoster, cauda equina syndrome, epidural abscess, vertebral osteomyelitis, discitis, fracture, subluxation, disc herniation, DJD, spinal stenosis, dissection, AAA, pancreatitis, peptic ulcer disease, pyelonephritis, kidney stone, this is not meant to be an all-inclusive list. EKG interpreted by me (3pts min.)? @ -Not obtained X-rays interpreted by me (1pt min.)? @ -Not obtained CT interpreted by me (1pt min.)? @ -Not obtained U/S interpreted by me (1pt. min.)? @ -Not obtained What testing was considered but not performed? (CT, X-rays, U/S, labs)? Why? @ -None What meds were considered but not given? Why? @ -None Did you discuss the management of the patient with other professionals? @ -Yes, Dr. Lin, who accepts the patient for admission Did you reconcile home meds? @ -No Was smoking cessation discussed for >3mins.? @ -No Was critical care preformed (if so, how long)? @ -No Were there social determinants of health that impacted care today? How? (Homelessness, low income, unemployed, alcoholism, drug addiction, tate sportation, low edu. Level, literacy, decrease access to med. care, custodial, rehab)? @ -No Was there de-escalation of care discussed even if they declined? (Discuss DNR or withdrawal of care, Hospice)? @ -No What co-morbidities impacted this encounter? (DM, HTN, Smoking, COPD, CAD, Cancer, CVA, Hep., AIDS, mental health diagnosis, sleep apnea, morbid obesity)? @ -DM Was patient admitted / discharged? @ -Admitted. Lab work unremarkable. Urine culture from 04/12/2024 reviewed returning as ESBL E. coli. Patient received a call stating that she needed to return for IV antibiotic management. Repeat urinalysis today does still appear to be consistent with infection. Urine was again sent for culture. Culture and sensitivity report from 04/12 was reviewed and based on those results patient was started on meropenem for ESBL UTI. Patient admitted to medicine for ESBL UTI with consult placed for infectious disease. Case discussed with ED attending, Dr. Jean. Undiagnosed new problem with uncertain prognosis? @ -None Drug Therapy requiring intensive monitoring for toxicity (Heparin, Nitro, Insulin, Cardizem)? @ -None Were any procedures done? @ -None Diagnosis/symptom? @ -ESBL UTI Acute, or Chronic, or Acute on Chronic? @ -Acute Uncomplicated (without systemic symptoms) or Complicated (systemic symptoms)? @ -Complicated Side effects of treatment? @ -None Exacerbation, Progression, or Severe Exacerbation] @ -Not applicable Poses a threat to life or bodily function? @ -Yes, can lead to worsening infection, which can lead to septic shock and (Wendy Hill) - Lab Data Lab Results 04/15/24 04/15/24 04/15/24 Range/Units 16:28 17:02 17:02 WBC 6.3 (3.8-10.6) k/uL RBC 3.88 (3.80-5.40) m/uL Hgb 11.7 (11.4-16.0) gm/dL Hct 35.6 (34.0-46.0) % MCV 91.8 (80.0-100.0) fL MCH 30.1 (25.0-35.0) pg MCHC 32.8 (31.0-37.0) g/dL RDW 13.4 (11.5-15.5) % Plt Count 288 (150-450) k/uL MPV 6.6 Neutrophils % 65 % Lymphocytes % 24 % Monocytes % 7 % Eosinophils % 2 % Basophils % 1 % Neutrophils # 4.1 (1.3-7.7) k/uL Lymphocytes # 1.6 (1.0-4.8) k/uL Monocytes # 0.4 (0-1.0) k/uL Eosinophils # 0.1 (0-0.7) k/uL Basophils # 0.1 (0-0.2) k/uL Hypochromasia Slight Sodium 139 (137-145) mmol/L Potassium 4.1 (3.5-5.1) mmol/L Chloride 103 (98-107) mmol/L Carbon Dioxide 25 (22-30) mmol/L Anion Gap 11 mmol/L BUN 21 H (7-17) mg/dL Creatinine 0.72 (0.52-1.04) mg/dL Est GFR (CKD-EPI)AfAm >90 (>60 ml/min/1.73 sqM) Est GFR (CKD-EPI)NonAf 87 (>60 ml/min/1.73 sqM) Glucose 105 H (74-99) mg/dL Calcium 9.8 (8.4-10.2) mg/dL Total Bilirubin 0.3 (0.2-1.3) mg/dL AST 29 (14-36) U/L ALT 19 (4-34) U/L Alkaline Phosphatase 65 (38-126) U/L Total Protein 6.9 (6.3-8.2) g/dL Albumin 4.5 (3.5-5.0) g/dL Urine Color Colorless Urine Appearance Clear (Clear) Urine pH 6.0 (5.0-8.0) Ur Specific [place] 1.018 (1.001-1.035) Urine Protein Negative (Negative) Urine Glucose (UA) Negative (Negative) Urine Ketones Negative (Negative) Urine Blood Negative (Negative) Urine Nitrite Negative (Negative) Urine Bilirubin Negative (Negative) Urine Urobilinogen <2.0 (<2.0) mg/dL Ur Leukocyte Esterase Moderate H (Negative) Urine RBC 1 (0-5) /hpf Urine WBC 47 H (0-5) /hpf Ur Squamous Epith Cells <1 (0-4) /hpf Urine Bacteria Rare H (None) /hpf Urine Mucus Rare H (None) /hpf Disposition <Kari Maddox - Last Filed: 04/15/24 17:07> <Wendy Hill - Last Filed: 04/16/24 03:36> Clinical Impression: UTI due to extended-spectrum beta lactamase (ESBL) producing Escherichia coli Disposition: ADMITTED IP TO THIS HOSP
[2024-04-15 17:11] LABS: Basophils # (A) 0.1 k/uL (0-0.2); Basophils % (A) 1 %; Eosinophils # (A) 0.1 k/uL (0-0.7); Eosinophils % (A) 2 %; HCT 35.6 % (34.0-46.0); HGB 11.7 gm/dL (11.4-16.0); Hypochromasia Slight; Lymphocytes # (A) 1.6 k/uL (1.0-4.8); Lymphocytes % (A) 24 %; MCH 30.1 pg (25.0-35.0); MCHC 32.8 g/dL (31.0-37.0); MCV 91.8 fL (80.0-100.0); Mean Platelet Volume 6.6; Monocytes # (A) 0.4 k/uL (0-1.0); Monocytes % (A) 7 %; Neutrophils # (A) 4.1 k/uL (1.3-7.7); Neutrophils % (A) 65 %; Platelet Count 288 k/uL (150-450); RBC 3.88 m/uL (3.80-5.40); RDW 13.4 % (11.5-15.5); WBC 6.3 k/uL (3.8-10.6)
[2024-04-15 17:15] LABS: Appearance,Urine Clear (Clear); Bacteria,Urine Rare /hpf; Bilirubin,Urine Negative (Negative); Blood,Urine Negative (Negative); Color,Urine Colorless; Glucose,Urine (UA) Negative (Negative); Ketones,Urine Negative (Negative); Leukocyte Esterase,Urine Moderate (Negative); Mucus,Urine Rare /hpf; Nitrite,Urine Negative (Negative); Protein,Urine Negative (Negative); RBC,Urine 1 /hpf (0-5); Specific Gravity,Urine 1.018 (1.001-1.035); Squamous Epithelial Cell,Urine <1 /hpf (0-4); Urobilinogen,Urine <2.0 mg/dL (<2.0); WBC,Urine 47 /hpf (0-5)
[2024-04-15 17:20] LABS: ALT 19 U/L (4-34); AST 29 U/L (14-36); African American GFR (CKD) >90 (>60 ml/min/1.73 sqM); Albumin 4.5 g/dL (3.5-5.0); Alkaline Phosphatase 65 U/L (38-126); Anion Gap 11 mmol/L; Blood Urea Nitrogen 21 mg/dL (7-17); Calcium 9.8 mg/dL (8.4-10.2); Carbon Dioxide 25 mmol/L (22-30); Chloride 103 mmol/L (98-107); Glucose 105 mg/dL (74-99); Non-African American GFR(CKD) 87 (>60 ml/min/1.73 sqM); Potassium 4.1 mmol/L (3.5-5.1); Sodium 139 mmol/L (137-145); Total Bilirubin 0.3 mg/dL (0.2-1.3); Total Protein 6.9 g/dL (6.3-8.2)
[2024-04-15] MEDS: KETOROLAC 15 MG/ML 1 ML VIAL IVP STA (22:06)
[2024-04-15] MEDS: MORPHINE SULFATE 4 MG/ML SYRINGE IVP STA (22:09)
[2024-04-15] MEDS: SODIUM CHLORIDE 0.9% 1,000 ML IV STA (22:10)
[2024-04-15] MEDS ORDERED: IBUPROFEN 400 MG TAB PO PRN (22:48)
[2024-04-15] MEDS ORDERED: ACETAMINOPHEN TAB 325 MG TAB PO PRN (22:48)
[2024-04-15] MEDS ORDERED: MORPHINE SULFATE 4 MG/ML SYRINGE IV PRN (22:48)
[2024-04-15] MEDS ORDERED: ONDANSETRON 4 MG/2 ML VIAL IVP PRN (22:48)
[2024-04-15] MEDS ORDERED: NALOXONE 0.4 MG/ML 1 ML VIAL IV PRN (22:48)
[2024-04-15] MEDS: MEROPENEM 1 GM in SODIUM CHLORIDE 0.9% 100 ML IVPB SCH (23:18)
[2024-04-15] MEDS: SODIUM CHLORIDE 0.9% 1,000 ML IV SCH (23:18)
[2024-04-16] MEDS: PANTOPRAZOLE 40 MG/10 ML VIAL IV SCH (08:59)
[2024-04-16] MEDS: HYDROcodone/APAP 5-325MG 1 EACH TAB PO PRN ×2 (09:03→18:51)
[2024-04-16] MEDS: KETOROLAC 15 MG/ML 1 ML VIAL IVP PRN (09:05)
[2024-04-16] MEDS ORDERED: ALBUTEROL HFA INHALER INHALATION PRN (10:47)
[2024-04-16] MEDS ORDERED: DEXTROSE 50% SYRINGE 50 ML IVP PRN ×2 (10:48)
[2024-04-16 11:45] LABS: Glucose,Whole Blood 132 mg/dL (70-110)
[2024-04-16] MEDS: INSULIN ASPART (NovoLOG) 100 UNIT/ML VIAL SQ SCH (11:45)
--- NOTE | 2024-04-16 11:55 | US ---
EXAMINATION TYPE: US kidneys/renal and bladder DATE OF EXAM: 04/16/2024 COMPARISON: 12/09/2023 CLINICAL INDICATION: Female, 68 years old with history of Re; Patient complains of back pain and den ies any other signs, symptoms, or relevant history EXAM MEASUREMENTS: Right Kidney: 10.2 x 5.1 x 4.7 cm Left Kidney: 11.0 x 4.9 x 4.3 cm Post Void Residual Volume: NA mL Right Kidney: Simple cyst noted, no hydronephrosis or mass. Left Kidney:, No hydronephrosis or mass. Bladder: wnl Bilateral Jets seen: Yes Normal Post Void Residual: NA There is no evidence for hydronephrosis at this point in time. No nephrolithiasis is seen. No yessenia s are identified. The urinary bladder is anechoic. Bilateral ureteral jets are seen. IMPRESSION: 1. No obstructive uropathy. 2. Simple appearing right renal cyst.
--- NOTE | 2024-04-16 14:25 | P.HPIM ---
History of Present Illness H&P Date: 04/16/24 History of present illness; patient is 68-year-old lady with past medical history significant for hypertension, diabetes mellitus, hyperlipidemia presented to ER for for abnormal urine culture. Patient was recently seen in the hospital 3 days ago at which time she was diagnosed with UTI and COVID 19. Patient urine culture done at that time that came back positive for ESBL for which the patient was called back to come back to the ER. Patient stated that she has been noticing that she was having lower back pain. There was no complaint of any fever. Denies any chills. Denies any increased frequency of urination or burning pain. Denies any hematuria. Patient was complaining of nausea but denies any abdominal pain. Initial lab work done in the ER showed WBC 6.3, hemoglobin 11.7, platelet count 288, sodium 139, potassium 4.1, BUN 21, creatinine 0.72, glucose 105 UA showed moderate amount of leukocyte Estrace, nitrite negative, urine WBC 47 Patient admitted to internal medicine service REVIEW OF SYSTEMS: CONSTITUTIONAL: No fever, no malaise, no fatigue. HEENT: No recent visual problems or hearing problems. Denied any sore throat. CARDIOVASCULAR: No chest pain, orthopnea, PND, no palpitations, no syncope. PULMONARY: No shortness of breath, no cough, no hemoptysis. GASTROINTESTINAL: As mentioned above NEUROLOGICAL: No headaches, no weakness, no numbness. HEMATOLOGICAL: Denies any bleeding or petechiae. GENITOURINARY: As mentioned above MUSCULOSKELETAL/RHEUMATOLOGICAL: Denies any joint pain, swelling, or any muscle pain. ENDOCRINE: Denies any polyuria or polydipsia. The rest of the 14-point review of systems is negative. PHYSICAL EXAMINATION: GENERAL: The patient is alert and oriented x3, not in any acute distress. Well developed, well nourished. HEENT: Pupils are round and equally reacting to light. EOMI. No scleral icterus. No conjunctival pallor. Normocephalic, atraumatic. No pharyngeal erythema. No thyromegaly. CARDIOVASCULAR: S1 and S2 present. No murmurs, rubs, or gallops. PULMONARY: Chest is clear to auscultation, no wheezing or crackles. ABDOMEN: Soft, nontender, nondistended, normoactive bowel sounds. No palpable organomegaly. MUSCULOSKELETAL: No joint swelling or deformity. EXTREMITIES: No cyanosis, clubbing, or pedal edema. NEUROLOGICAL: Gross neurological examination did not reveal any focal deficits. SKIN: No rashes. Assessment and plan ESBL UTI Hypertension Hyperlipidemia Diabetes mellitus Monitor vital signs Monitor CBC Monitor CMP Continue telemetry monitoring Results of urine culture noted, will start patient on meropenem Ordered ultrasound of kidneys Ordered blood sugar levels and sliding scale insulin Resume home meds Consult infectious disease Labs and medication were reviewed.. Continue same treatment. Continue with symptomatic treatment. Resume home medication. Monitor labs and vitals. DVT and GI prophylaxis. Further recommendations as per clinical course of the patient Dictation was produced using [employer] dictation software. please excuse any grammatical, word or spelling errors. Past Medical History Past Medical History: COPD, Diabetes Mellitus History of Any Multi-Drug Resistant Organisms: None Reported Past Surgical History: Hysterectomy, Tonsillectomy Past Psychological History: Depression Smoking Status: Former smoker Past Alcohol Use History: Rare Past Drug Use History: None Reported Medications and Allergies Home Medications Medication Instructions Recorded Confirmed Type Atorvastatin [Lipitor] 10 mg PO DIRECTED 05/22/23 04/16/24 History FLUoxetine HCL [PROzac] 10 mg PO DAILY 05/22/23 04/16/24 History lisinopriL [Zestril] 10 mg PO HS 05/22/23 04/16/24 History metFORMIN HCL 1,000 mg PO BID 05/22/23 04/16/24 History Ketorolac [Toradol] 10 mg PO Q6HR PRN #15 tab 04/12/24 04/16/24 Rx Ondansetron Odt [Zofran Odt] 4 mg PO Q8HR PRN #15 tab 04/12/24 04/16/24 Rx Sulfamethox-Tmp 800-160Mg [Bactrim 1 tab PO Q12HR 7 Days #14 tab 04/12/24 04/16/24 Rx DS 800-160 mg] Albuterol Inhaler [Ventolin Hfa 1 - 2 puff INHALATION RT-Q6H PRN 04/16/24 04/16/24 History Inhaler] Nirmatrelvir/Ritonavir [Paxlovid 1 dose PO BID 04/16/24 04/16/24 History 300-100 mg Dose Pack] Allergies Allergy/AdvReac Type Severity Reaction Status Date / Time No Known Allergies Allergy Verified 04/16/24 08:53 Physical Exam Vitals: Vital Signs Temp Pulse Resp BP Pulse Ox 04/16/24 03:00 70 16 136/63 95 04/15/24 23:26 98.1 F 56 L 16 164/74 96 04/15/24 16:23 98.8 F 69 18 149/75 96 Intake and Output 04/15/24 04/16/24 04/16/24 22:59 06:59 14:59 Other: Voiding Method Toilet Weight 63.957 kg Results CBC & Chem 7: 04/15/24 17:02 04/15/24 17:02 Labs: Abnormal Lab Results - Last 24 Hours (Table) 04/15/24 04/15/24 Range/Units 16:28 17:02 BUN 21 H (7-17) mg/dL Glucose 105 H (74-99) mg/dL Ur Leukocyte Esterase Moderate H (Negative) Urine WBC 47 H (0-5) /hpf Urine Bacteria Rare H (None) /hpf Urine Mucus Rare H (None) /hpf
[2024-04-16 17:32] LABS: Glucose,Whole Blood 123 mg/dL (70-110)
[2024-04-16 20:29] LABS: Glucose,Whole Blood 106 mg/dL (70-110)
[2024-04-16] MEDS: lisinopriL 10 MG TAB PO SCH (22:14)
--- NOTE | 2024-04-16 22:57 | P.CONS ---
History of Present Illness - Reason for Consult Consult date: 04/16/24 ESBL UTI Requesting physician: Wendy Hill - Chief Complaint Urinary burning and frequency x few days - History of Present Illness Patient is a 68-year-old female with a past medical history of weakness COPD diabetes mellitus and history of recurrent UTI patient was recently evaluated at this facility the patient was diagnosed with COVID-19 and did have a UTI and was discharged on oral antibiotic with the cultures came back positive for ESBL E. coli patient was advised to come back to the hospital for IV antibiotic therapy patient denies having any fever or any chills has been complaining of generalized bodyaches weakness and nausea he did have urinary burning and frequency denies any hematuria and no diarrhea on presentation to the hospital and the patient was afebrile and a few have been recorded subsequently patient was nontachycardic hypotensive or hypoxic patient did have a white count of 6.3 creatinine 0.72 urine has been positive with moderate leukocyte esterase 4 7 WBC cultures are pending patient did have a abdominal bladder ultrasound no obstructive uropathy simple appearing right renal cyst patient was started on meropenem admitted to the hospital infectious disease was consulted for further management of antibiotic therapy Review of Systems Positive point and negatives has been mentioned in the HPI, complete review of systems was performed and all other systems are negative Past Medical History Past Medical History: COPD, Diabetes Mellitus History of Any Multi-Drug Resistant Organisms: None Reported Past Surgical History: Hysterectomy, Tonsillectomy Past Psychological History: Depression Smoking Status: Former smoker Past Alcohol Use History: Rare Past Drug Use History: None Reported Medications and Allergies Home Medications Medication Instructions Recorded Confirmed Type Atorvastatin [Lipitor] 10 mg PO DIRECTED 05/22/23 04/16/24 History FLUoxetine HCL [PROzac] 10 mg PO DAILY 05/22/23 04/16/24 History lisinopriL [Zestril] 10 mg PO HS 05/22/23 04/16/24 History metFORMIN HCL 1,000 mg PO BID 05/22/23 04/16/24 History Ketorolac [Toradol] 10 mg PO Q6HR PRN #15 tab 04/12/24 04/16/24 Rx Ondansetron Odt [Zofran Odt] 4 mg PO Q8HR PRN #15 tab 04/12/24 04/16/24 Rx Sulfamethox-Tmp 800-160Mg [Bactrim 1 tab PO Q12HR 7 Days #14 tab 04/12/24 04/16/24 Rx DS 800-160 mg] Albuterol Inhaler [Ventolin Hfa 1 - 2 puff INHALATION RT-Q6H PRN 04/16/24 04/16/24 History Inhaler] Nirmatrelvir/Ritonavir [Paxlovid 1 dose PO BID 04/16/24 04/16/24 History 300-100 mg Dose Pack] Allergies Allergy/AdvReac Type Severity Reaction Status Date / Time No Known Allergies Allergy Verified 04/16/24 08:53 Physical Exam Vitals: Vital Signs Temp Pulse Resp BP Pulse Ox 04/16/24 03:00 70 16 136/63 95 04/15/24 23:26 98.1 F 56 L 16 164/74 96 04/15/24 16:23 98.8 F 69 18 149/75 96 Intake and Output 04/15/24 04/16/24 04/16/24 22:59 06:59 14:59 Other: Voiding Method Toilet Weight 63.957 kg GENERAL DESCRIPTION: Elderly female lying in bed, no distress. No tachypnea or accessory muscle of respiration use. HEENT: Shows Pallor , no scleral icterus. Oral mucous membrane is dry. No p haryngeal erythema or thrush NECK: Trachea central, no thyromegaly. LUNGS: Unlabored breathing. Clear to auscultation anteriorly. No wheeze or crackle. HEART: S1, S2, regular rate and rhythm. No loud murmur ABDOMEN: Soft, no tenderness , guarding or rigidity, no organomegaly EXTREMITIES: No edema of feet. SKIN: No rash, no masses palpable. NEUROLOGICAL: The patient is awake, alert, oriented x3, mood and affect normal. Results CBC & Chem 7: 04/15/24 17:02 04/15/24 17:02 Labs: Abnormal Lab Results - Last 24 Hours (Table) 04/15/24 04/15/24 04/16/24 Range/Units 16:28 17:02 11:43 BUN 21 H (7-17) mg/dL Glucose 105 H (74-99) mg/dL POC Glucose (mg/dL) 132 H (70-110) mg/dL Ur Leukocyte Esterase Moderate H (Negative) Urine WBC 47 H (0-5) /hpf Urine Bacteria Rare H (None) /hpf Urine Mucus Rare H (None) /hpf Assessment and Plan (1) UTI due to extended-spectrum beta lactamase (ESBL) producing Escherichia coli Current Visit: Yes Status: Acute Code(s): N39.0 - URINARY TRACT INFECTION, SITE NOT SPECIFIED; B96.29 - OTH ESCHERICHIA COLI THE CAUSE OF DISEASES CLASSD ELSWHR; Z16.12 - EXTENDED SPECTRUM BETA LACTAMASE (ESBL) RESISTANCE SNOMED Code(s): 929778497 Plan: 1patient presented hospital with the positive urine culture done on her last ER visit with ESBL E. coli patient did have urinary symptoms but no fever elevated white count more behaving as a cystitis rather than deep infection ultrasound was negative for any structural abnormality 2we will consider a 3-day course of meropenem Question concern answered We will follow on clinical condition and cultures to further adjust medication if needed Thank you for this consultation we will follow the patient along with you Dictation was produced using [employer] dictation software. please excuse any grammatical, word or spelling errors. Time with Patient: Greater than 30
[2024-04-17 06:09] LABS: Glucose,Whole Blood 96 mg/dL (70-110)
[2024-04-17] MEDS: FLUoxetine HCL 10 MG CAP PO SCH (09:53)
[2024-04-17 10:03] LABS: ALT 16 U/L (8-44); AST 18 U/L (13-35); Albumin 3.9 g/dL (3.8-4.9); Albumin/Globulin Ratio 2.05 Ratio (1.60-3.17); Alkaline Phosphatase 61 U/L (41-126); BUN/Creat Ratio 23.29 Ratio (12.00-20.00); Blood Urea Nitrogen 16.3 mg/dL (9.0-27.0); Carbon Dioxide 27.5 mmol/L (21.6-31.8); Chloride 102 mmol/L (96-109); Globulin 1.9 g/dL (1.6-3.3); Glucose 102 mg/dL (70-110); Potassium 4.6 mmol/L (3.5-5.5); Sodium 138 mmol/L (135-145); Total Bilirubin <0.2 mg/dL (0.3-1.2); Total Protein 5.8 g/dL (6.2-8.2)
[2024-04-17 10:23] LABS: Basophils # (A) 0.03 X 10*3/uL (0.00-0.10); Basophils % (A) 0.7 %; Eosinophils # (A) 0.17 X 10*3/uL (0.04-0.35); Eosinophils % (A) 3.7 %; HCT 34.7 % (37.2-46.3); HGB 10.7 g/dL (12.0-15.0); Lymphocytes # (A) 2.24 X 10*3/uL (0.90-5.00); Lymphocytes % (A) 48.6 %; MCH 28.7 pg (27.0-32.0); MCHC 30.8 g/dL (32.0-37.0); Monocytes # (A) 0.47 X 10*3/uL (0.20-1.00); Monocytes % (A) 10.2 %; NRBC Per 100 WBC 0 X 10*3/uL (0.00-0.01); Neutrophils # (A) 1.69 X 10*3/uL (1.80-7.70); Neutrophils % (A) 36.6 %; Platelet Count 247 X 10*3/uL (140-440); RBC 3.73 X 10*6/uL (4.10-5.20); RDW 12.8 % (11.5-14.5); WBC 4.61 X 10*3/uL (4.50-10.00)
[2024-04-17 11:31] LABS: Glucose,Whole Blood 90 mg/dL (70-110)
--- NOTE | 2024-04-17 13:28 | P.PN ---
Subjective Progress Note Date: 04/17/24 patient is 68-year-old lady with past medical history significant for hypertension, diabetes mellitus, hyperlipidemia presented to ER for for abnormal urine culture. Patient was recently seen in the hospital 3 days ago at which time she was diagnosed with UTI and COVID 19. Patient urine culture done at that time that came back positive for ESBL for which the patient was called back to come back to the ER. Patient stated that she has been noticing that she was having lower back pain. There was no complaint of any fever. Denies any chills. Denies any increased frequency of urination or burning pain. Denies any hematuria. Patient was complaining of nausea but denies any abdominal pain. Initial lab work done in the ER showed WBC 6.3, hemoglobin 11.7, platelet count 288, sodium 139, potassium 4.1, BUN 21, creatinine 0.72, glucose 105 UA showed moderate amount of leukocyte Estrace, nitrite negative, urine WBC 47 Patient admitted to internal medicine service 04/17. Patient seen and examined. States she feels much better. ID evaluated, recommended 3 days of IV antibiotics. States back pain is improved. Denies any urinary hesitancy urgency or incontinence REVIEW OF SYSTEMS: CONSTITUTIONAL: No fever, no malaise,. CARDIOVASCULAR: No chest pain, no palpitations, no syncope. PULMONARY: No shortness of breath, no cough, GASTROINTESTINAL: No diarrhea, no nausea, no vomiting, no abdominal pain. NEUROLOGICAL: No headaches, no weakness, PHYSICAL EXAMINATION: GENERAL: The patient is alert and oriented x3, not in any acute distress. Well developed, well nourished. HEENT: Pupils are round and equally reacting to light. EOMI. No scleral icterus. No conjunctival pallor. Normocephalic, atraumatic. No pharyngeal erythema. No thyromegaly. CARDIOVASCULAR: S1 and S2 present. No murmurs, rubs, or gallops. PULMONARY: Chest is clear to auscultation, no wheezing or crackles. ABDOMEN: Soft, nontender, nondistended, normoactive bowel sounds. No palpable organomegaly. MUSCULOSKELETAL: No joint swelling or deformity. EXTREMITIES: No cyanosis, clubbing, or pedal edema. NEUROLOGICAL: Gross neurological examination did not reveal any focal deficits. SKIN: No rashes. Assessment and plan ESBL UTI Hypertension Hyperlipidemia Diabetes mellitus Monitor vital signs Monitor CBC Monitor CMP Results of urine culture noted Continue meropenem Monitor blood sugar levels and sliding scale insulin DC fluids ID recommend 3 days of IV antibiotic Labs and medication were reviewed.. Continue same treatment. Continue with symptomatic treatment. Resume home medication. Monitor labs and vitals. DVT and GI prophylaxis. Further recommendations as per clinical course of the patient Dictation was produced using [employer] dictation software. please excuse any grammatical, word or spelling errors. Objective - Vital Signs Vital signs: Vital Signs Temp 97.6 F 04/17/24 08:45 Pulse 67 04/17/24 08:45 Resp 17 04/17/24 08:45 BP 161/77 04/17/24 08:45 Pulse Ox 97 04/17/24 08:45 FiO2 Intake & Output 04/16/24 04/17/24 04/17/24 18:59 06:59 18:59 Intake Total 200 Balance 200 Weight 63.957 kg Intake: Oral 200 Other: Voiding Method Toilet # Voids 2 2 - Labs CBC & Chem 7: 04/17/24 06:01 04/17/24 06:01 Labs: Abnormal Lab Results - Last 24 Hours (Table) 04/16/24 04/16/24 Range/Units 11:43 17:30 POC Glucose (mg/dL) 132 H 123 H (70-110) mg/dL Microbiology - Last 24 Hours (Table) 04/15/24 16:28 Urine Culture - Final Urine,Voided
--- NOTE | 2024-04-17 14:29 | P.PN ---
Subjective Progress Note Date: 04/17/24 Principal diagnosis: Reason for follow-up ESBL E. coli urinary tract infection Patient is a 68-year-old female with a past medical history of weakness COPD diabetes mellitus and history of recurrent UTI admitted to hospital with a positive urine culture for ESBL E. coli ultrasound was negative for any hydronephrosis or renal stone. On today's evaluation that is 04/17/2024, the patient continues to be afebrile, the patient is on room air and breathing comfortably, the Pt denies having any chest pain or cough, the patient denies having any abdominal pain no vomiting or any diarrhea mention some improvement in her urinary symptoms. Patient white count is 4.61, creatinine 0.7 Objective - Vital Signs Vital signs: Vital Signs Temp 97.6 F 04/17/24 08:45 Pulse 67 04/17/24 08:45 Resp 17 04/17/24 08:45 BP 161/77 04/17/24 08:45 Pulse Ox 97 04/17/24 08:45 FiO2 Intake & Output 04/16/24 04/17/24 04/17/24 18:59 06:59 18:59 Intake Total 200 Balance 200 Weight 63.957 kg Intake: Oral 200 Other: Voiding Method Toilet Toilet # Voids 2 2 - Exam GENERAL DESCRIPTION: An elderly female up in bed in no distress RESPIRATORY SYSTEM: Unlabored breathing , decreased breath sounds at bases HEART: S1 S2 regular rate and rhythm , ABDOMEN: Soft , no tenderness EXTREMITIES: No edema feet - Labs CBC & Chem 7: 04/17/24 06:01 04/17/24 06:01 Labs: Abnormal Lab Results - Last 24 Hours (Table) 04/16/24 04/17/24 04/17/24 Range/Units 17:30 06:01 06:01 RBC 3.73 L (4.10-5.20) X 10*6/uL Hgb 10.7 L (12.0-15.0) g/dL Hct 34.7 L (37.2-46.3) % MCHC 30.8 L (32.0-37.0) g/dL MPV 9.0 L (9.5-12.2) FL Neutrophils # 1.69 L (1.80-7.70) X 10*3/uL BUN/Creatinine Ratio (12.00-20.00) Ratio POC Glucose (mg/dL) 123 H (70-110) mg/dL Hemoglobin A1c 6.5 H (<=6.0) % Total Bilirubin (0.3-1.2) mg/dL Total Protein (6.2-8.2) g/dL 04/17/24 Range/Units 06:01 RBC (4.10-5.20) X 10*6/uL Hgb (12.0-15.0) g/dL Hct (37.2-46.3) % MCHC (32.0-37.0) g/dL MPV (9.5-12.2) FL Neutrophils # (1.80-7.70) X 10*3/uL BUN/Creatinine Ratio 23.29 H (12.00-20.00) Ratio POC Glucose (mg/dL) (70-110) mg/dL Hemoglobin A1c (<=6.0) % Total Bilirubin <0.2 L (0.3-1.2) mg/dL Total Protein 5.8 L (6.2-8.2) g/dL Microbiology - Last 24 Hours (Table) 04/15/24 23:25 Blood Culture - Preliminary Blood 04/15/24 16:28 Urine Culture - Final Urine,Voided Assessment and Plan (1) UTI due to extended-spectrum beta lactamase (ESBL) producing Escherichia coli Current Visit: Yes Status: Acute Code(s): N39.0 - URINARY TRACT INFECTION, SITE NOT SPECIFIED; B96.29 - OTH ESCHERICHIA COLI THE CAUSE OF DISEASES CLASSD ELSWHR; Z16.12 - EXTENDED SPECTRUM BETA LACTAMASE (ESBL) RESISTANCE SNOMED Code(s): 909644058 Plan: 1patient presented hospital with the positive urine culture done on her last ER visit with ESBL E. coli patient did have urinary symptoms but no fever elevated white count more behaving as a cystitis rather than deep infection ultrasound was negative for any structural abnormality 2patient to continue with the meropenem today we will give her a dose of Invanz 1 g x 1 that will complete her 3-day course of therapy, multiple question concern answered Dictation was produced using [employer] dictation software. please excuse any grammatical, word or spelling errors. Time with Patient: Less than 30
[2024-04-17 16:48] LABS: Glucose,Whole Blood 126 mg/dL (70-110)
[2024-04-17 20:26] LABS: Glucose,Whole Blood 106 mg/dL (70-110)
[2024-04-17] MEDS: ATORVASTATIN 10 MG TAB PO SCH (20:51)
[2024-04-18 05:38] LABS: Glucose,Whole Blood 128 mg/dL (70-110)
[2024-04-18 07:51] VITALS: RESP 16
[2024-04-18 11:46] LABS: Glucose,Whole Blood 105 mg/dL (70-110)
[2024-04-18] MEDS: ERTAPENEM 1 GM in SODIUM CHLORIDE 0.9% 50 ML IVPB SCH (13:12)
[2024-04-18 13:52] VITALS: BP 152/71; PULSE 62; TEMP 98.2
--- NOTE | 2024-04-20 08:32 | P.PN ---
Subjective Progress Note Date: 04/18/24 Principal diagnosis: Reason for follow-up ESBL E. coli urinary tract infection Patient is a 68-year-old female with a past medical history of weakness COPD diabetes mellitus and history of recurrent UTI admitted to hospital with a positive urine culture for ESBL E. coli ultrasound was negative for any hydronephrosis or renal stone. On today's evaluation that is 04/18/2024, Patient is afebrile patient is currently on room air and denies having any shortness of breath, the patient denies any chest pain or cough, the patient denies any nausea vomiting did not have any abdominal pain and no diarrhea, urinary symptoms has improved. No new lab has been obtained today blood and urine culture this admission has been negative Objective - Vital Signs Vital signs: Vital Signs Temp 97.5 F L 04/18/24 07:05 Pulse 57 L 04/18/24 07:05 Resp 16 04/18/24 07:05 BP 162/73 04/18/24 07:05 Pulse Ox 96 04/18/24 07:05 FiO2 Intake & Output 04/17/24 04/18/24 04/18/24 18:59 06:59 18:59 Intake Total 200 Balance 200 Intake: Oral 200 Other: Voiding Method Toilet Toilet Toilet # Voids 3 1 - Exam GENERAL DESCRIPTION: An elderly female up in bed in no distress RESPIRATORY SYSTEM: Unlabored breathing , decreased breath sounds at bases HEART: S1 S2 regular rate and rhythm , ABDOMEN: Soft , no tenderness EXTREMITIES: No edema feet - Labs CBC & Chem 7: 04/17/24 06:01 04/17/24 06:01 Labs: Abnormal Lab Results - Last 24 Hours (Table) 04/17/24 04/18/24 Range/Units 16:47 05:37 POC Glucose (mg/dL) 126 H 128 H (70-110) mg/dL Microbiology - Last 24 Hours (Table) 04/15/24 23:25 Blood Culture - Preliminary Blood Assessment and Plan (1) UTI due to extended-spectrum beta lactamase (ESBL) producing Escherichia coli Status: Acute Code(s): N39.0 - URINARY TRACT INFECTION, SITE NOT SPECIFIED; B96.29 - OTH ESCHERICHIA COLI THE CAUSE OF DISEASES CLASSD ELSWHR; Z16.12 - EXTENDED SPECTRUM BETA LACTAMASE (ESBL) RESISTANCE SNOMED Code(s): 113005171 Plan: 1patient presented hospital with the positive urine culture done on her last ER visit with ESBL E. coli patient did have urinary symptoms but no fever elevated white count more behaving as a cystitis rather than deep infection ultrasound was negative for any structural abnormality 2patient will get a dose of Invanz 1 g x 1 today that will complete her 3-day course of therapy, and no need for antibiotic on discharge this has been discussed with [employer] for admitting team working on discharge Dictation was produced using [employer] dictation software. please excuse any grammatical, word or spelling errors. Time with Patient: Less than 30
--- NOTE | 2024-04-23 09:24 | P.DS ---
Providers Date of admission: 04/15/24 23:57 Expected date of discharge: 04/18/24 Attending physician: Melissa Lin Consults: 04/15/24 22:48 Consult Physician Urgent Consulting Provider: Nimisha Rutherford Consult Reason/Comments: ESBL UTI Do you want consulting provider notified?: Yes Primary care physician: Kristina Lema [facility] Course: Final diagnosis ESBL UTI Hypertension Hyperlipidemia Diabetes mellitus Recent COVID-19 GI prophylaxis DVT prophylaxis Full code Discharge disposition Patient is being discharged in a stable condition with guarded prognosis to home. Patient will follow-up with Dr. Hugh Quinones in the outpatient setting upon discharge. Patient is to continue with supportive care and outpatient follow-up with primary care provider as scheduled. Total time taken is greater than 35 minutes. Hospital course This is a 68-year-old female who was recently admitted with urinary infection with generalized weakness recurrent infections and ESBL. Patient maintained on IV antibiotics with infectious disease following and has received adequate antibiotic therapy including an additional dose of Invanz prior to discharge to complete the course. Patient has been instructed to follow-up with primary care provider in the outpatient setting and he has been cleared by consultations. Patient with recent COVID-19 infection with no respiratory distress has been encouraged to continue with supportive care and monitor for any fevers with Tylenol and/or Motrin and continue with vitamin and zinc supplements. Patient with generalized weakness although evaluated by physical therapy and is independent in ADLs and gait. Patient will be discharged home today. Please refer to other consultation notes for further HPI. Currently no reports of chest pain, shortness of breath, or palpitations. Patient is afebrile. No reports of nausea or vomiting and patient is tolerating diet. Patient will be discharged home today. Physical exam: Gen: This is a 68-year-old female who is awake, alert and oriented x 3, well- developed, thin built, appears older than stated age HEENT: Head is atraumatic, normocephalic. Pupils equal, round. Sclerae is anicteric. NECK: Supple. No JVD. No lymphadenopathy. No thyromegaly. LUNGS: Clear to auscultation. No wheezes or rhonchi. No intercostal retractions. HEART: Regular rate and rhythm. No murmur. ABDOMEN: Soft. Bowel sounds are present. No masses. No tenderness. EXTREMITIES: No pedal edema. No calf tenderness. NEUROLOGICAL: Patient is awake, alert and oriented x3. Cranial nerves 2 through 12 are grossly intact. Please refer to medication reconciliation sheet for a list of medications. The impression and plan of care has been dictated by Trish Calvert, Nurse Practitioner as directed. Dr. Kayla MD I have performed a history and examination and MDM of this patient, discussed the same with the dictator, and agree with the dictator's assessment and plan as written ,documented as a scribe. Based on total visit time, I have performed more than 50% of the visit. Patient Condition at Discharge: Fair Plan - Discharge Summary Discharge Rx Participant: No New Discharge Prescriptions: New Acetaminophen Tab [Tylenol] 650 mg PO Q6HR PRN tab PRN Reason: Mild Pain Or Fever > 100.5 Continue Atorvastatin [Lipitor] 10 mg PO DIRECTED FLUoxetine HCL [PROzac] 10 mg PO DAILY lisinopriL [Zestril] 10 mg PO HS Ketorolac [Toradol] 10 mg PO Q6HR PRN #15 tab PRN Reason: Pain metFORMIN HCL 1,000 mg PO BID Ondansetron Odt [Zofran ODT] 4 mg PO Q8HR PRN #15 tab PRN Reason: Nausea And Vomiting Albuterol Inhaler [Ventolin Hfa Inhaler] 1 - 2 puff INHALATION RT-Q6H PRN PRN Reason: Shortness Of Breath Discontinued Sulfamethox-Tmp 800-160Mg [Bactrim DS 800-160 mg] 1 tab PO Q12HR 7 Days #14 tab Nirmatrelvir/Ritonavir [Paxlovid 300-100 mg Dose Pack] 1 dose PO BID Discharge Medication List Atorvastatin [Lipitor] 10 mg PO DIRECTED 05/22/23 [History] FLUoxetine HCL [PROzac] 10 mg PO DAILY 05/22/23 [History] lisinopriL [Zestril] 10 mg PO HS 05/22/23 [History] metFORMIN HCL 1,000 mg PO BID 05/22/23 [History] Ketorolac [Toradol] 10 mg PO Q6HR PRN #15 tab 04/12/24 [Rx] Ondansetron Odt [Zofran ODT] 4 mg PO Q8HR PRN #15 tab 04/12/24 [Rx] Albuterol Inhaler [Ventolin Hfa Inhaler] 1 - 2 puff INHALATION RT-Q6H PRN 04/16/24 [History] Acetaminophen Tab [Tylenol] 650 mg PO Q6HR PRN tab 04/18/24 [Rx] Follow up Appointment(s)/Referral(s): Kristina Lema MD [Primary Care Provider] - 1-2 days Activity/Diet/Wound Care/Special Instructions: Follow-up with primary care provider Continue taking medications as prescribed Patient was admitted on 04/15/24. Discharged on 04/18/24. She may return to work on Thursday04/20/24. She has no restrictions. Discharge Disposition: HOME SELF-CARE
== END 2024-04-18 15:21 | disposition home or self-care (01) | DRG 690 ==
LOC: EC 15:57 → 4SSUR 23:57
PROVIDERS: ADMIT Internal Medicine; ATTEND Internal Medicine
DX: N39.0 Urinary tract infection, site not specified (principal); B96.20 Unspecified Escherichia coli [E. coli] as the cause of diseases classified elsewhere; E11.9 Type 2 diabetes mellitus without complications; E78.5 Hyperlipidemia, unspecified; F32.A Depression, unspecified; I10 Essential (primary) hypertension; Z16.12 Extended spectrum beta lactamase (ESBL) resistance; J44.9 Chronic obstructive pulmonary disease, unspecified; Z79.84 Long term (current) use of oral hypoglycemic drugs; Z79.899 Other long term (current) drug therapy; Z87.440 Personal history of urinary (tract) infections; Z87.891 Personal history of nicotine dependence; Z90.710 Acquired absence of both cervix and uterus; Z86.16 Personal history of COVID-19
CPT/HCPCS: 36415; 76770; 80053; 81001; 83036; 85025; 87040; 87086; 96361; 96365; 96366; 96374; 96376; 99285

== ENCOUNTER → 2024-07-14 | Outpatient (CLI) | payer MEDICARE ==
--- NOTE | 2024-07-18 13:05 | MM ---
Reason for Exam: Screening (asymptomatic). Last mammogram was performed 2 year(s) and 1 month(s) ago. Patient History: Menarche at age 11. First Full-Term at age 18. Left ovary removed at age 34. Right ovary removed at age 34. Hysterectomy at age 34. Mother had breast cancer at or over age 50. Risk Values: Trena 5 year model risk: 3.2%. NCI Lifetime model risk: 9.2%. Prior Study Comparison: 07/29/2019 Bilateral Screening Mammogram, Chelsy Sury. 06/13/2022 Bilateral Screening Mammogram, Chelsy Sury. Tissue Density: There are scattered areas of fibroglandular density. Findings: Analyzed By CAD. Right breast: Asymmetry right breast total slices cc view 5.7 cm from nipple measuring 8 mm. Slightly lateral. Left breast: There is no suspicious group of microcalcifications or new suspicious mass. Overall Assessment: Incomplete: need additional imaging evaluation, BI-RAD 0 Management: Diagnostic Mammogram of the right breast. [facility] will attempt to contact patient to return for supplemental views and ultrasound if indicated. Patient should continue monthly self-breast exams. A clinical breast exam by your physician is recommended on an annual basis. This exam should not preclude additional follow-up of suspicious palpable abnormalities. Note on Trena scores and lifetime risk: 1. A Trena score greater than 3% is considered moderate risk. If this is the case, consider specialist referral to assess eligibility for a risk reducing agent. 2. If overall lifetime risk for the development of breast cancer is 20% or higher, the patient may qualify for future screening with alternating mammogram and breast MRI. [facility], , 07/18/2024 1:02 PM. Electronically signed and approved by: Ranjit Khoury DO
== END | disposition home or self-care (01) ==
LOC: RADMAMWWP 14:13
PROVIDERS: ATTEND Family Medicine
DX: Z12.31 Encounter for screening mammogram for malignant neoplasm of breast (principal); Z90.722 Acquired absence of ovaries, bilateral; Z80.3 Family history of malignant neoplasm of breast; R92.323 Mammographic fibroglandular density, bilateral breasts
CPT/HCPCS: 77063; 77067

== ENCOUNTER → 2024-07-26 | Outpatient (CLI) | payer MEDICARE ==
--- NOTE | 2024-07-26 09:39 | MM ---
Reason for Exam: Additional evaluation requested from abnormal screening. Last screening mammogram was performed less than 1 month ago. Patient History: Menarche at age 11. First Full-Term at age 18. Left ovary removed at age 34. Right ovary removed at age 34. Hysterectomy at age 34. Mother had breast cancer at or over age 50. Risk Values: Trena 5 year model risk: 3.2%. NCI Lifetime model risk: 9.2%. Tissue Density: Right: The breasts are heterogeneously dense, which may obscure small masses. Findings: Analyzed By CAD. Asymmetric density appears less conspicuous additional spot compression imaging. Precautionary six-month follow-up is dense. Overall Assessment: Probably benign, BI-RAD 3 Management: Diagnostic Mammogram of the right breast in 6 months. . Results were given to the patient verbally at the time of exam. Patient should continue monthly self-breast exams. A clinical breast exam by your physician is recommended on an annual basis. This exam should not preclude additional follow-up of suspicious palpable abnormalities. Note on Trena scores and lifetime risk: 1. A Trena score greater than 3% is considered moderate risk. If this is the case, consider specialist referral to assess eligibility for a risk reducing agent. 2. If overall lifetime risk for the development of breast cancer is 20% or higher, the patient may qualify for future screening with alternating mammogram and breast MRI. [facility], , 07/26/2024 9:36 AM. Electronically signed and approved by: Gaudencio Hernadez M.D. Radiologis
== END | disposition home or self-care (01) ==
LOC: RADMAMWWP 09:15
PROVIDERS: ATTEND Family Medicine
DX: R92.8 Other abnormal and inconclusive findings on diagnostic imaging of breast (principal); R92.333 Mammographic heterogeneous density, bilateral breasts
CPT/HCPCS: 77061; 77065

== ENCOUNTER 2024-12-22 13:18 | Emergency (ER) | payer MEDICARE ==
--- NOTE | 2024-12-22 14:30 | ED ---
General Adult HPI - General Chief complaint: Extremity Injury, Lower Stated complaint: L leg pain Time Seen by Provider: 12/22/24 13:31 Source: patient, RN notes reviewed Mode of arrival: ambulatory Limitations: no limitations - History of Present Illness Initial comments: This is a 69-year-old female presenting for left knee pain x 1 month. Patient states she was pushing a car when she "strained" her knee at the time, causing persistent throbbing (10/10) and occasional "giving out". Patient also endorses dysuria, urinary frequency/urgency x 10 days. Endorses history of recurrent UTIs. Denies fever, chills, hematuria, back pain Onset/Timin -: days(s) Location: left, lower extremity Radiation: non-radiation Severity scale (1-10): 10 Quality: dull Consistency: constant Improves with: immobilization Worsens with: movement Associated Symptoms: denies other symptoms Treatments Prior to Arrival: none - Related Data Home Medications Medication Instructions Recorded Confirmed Atorvastatin [Lipitor] 10 mg PO DIRECTED 05/22/23 04/16/24 FLUoxetine HCL [PROzac] 10 mg PO DAILY 05/22/23 04/16/24 lisinopriL [Zestril] 10 mg PO HS 05/22/23 04/16/24 metFORMIN HCL 1,000 mg PO BID 05/22/23 04/16/24 Albuterol Inhaler [Ventolin Hfa 1 - 2 puff INHALATION RT-Q6H PRN 04/16/24 04/16/24 Inhaler] Previous Rx's Medication Instructions Recorded Ketorolac [Toradol] 10 mg PO Q6HR PRN #15 tab 04/12/24 Ondansetron Odt [Zofran ODT] 4 mg PO Q8HR PRN #15 tab 04/12/24 Acetaminophen Tab [Tylenol] 650 mg PO Q6HR PRN tab 04/18/24 Ibuprofen [Motrin] 600 mg PO Q8HR PRN #20 tab 12/22/24 predniSONE [Deltasone] 20 mg PO DAILY #5 tab 12/22/24 Allergies Allergy/AdvReac Type Severity Reaction Status Date / Time No Known Allergies Allergy Verified 04/16/24 08:53 Review of Systems ROS Statement: Those systems with pertinent positive or pertinent negative responses have been documented in the HPI. ROS Other: All systems not noted in ROS Statement are negative. Past Medical History Past Medical History: COPD, Diabetes Mellitus, Hyperlipidemia, Hypertension History of Any Multi-Drug Resistant Organisms: None Reported Past Surgical History: Hysterectomy, Tonsillectomy Past Psychological History: Depression Smoking Status: Former smoker Past Alcohol Use History: Rare Past Drug Use History: None Reported General Exam Limitations: no limitations General appearance: alert, in no apparent distress Head exam: Present: atraumatic, normocephalic, normal inspection Eye exam: Present: normal appearance, PERRL, EOMI. Absent: scleral icterus, conjunctival injection, periorbital swelling ENT exam: Present: normal exam, mucous membranes moist Neck exam: Present: normal inspection. Absent: tenderness, meningismus, lymphadenopathy Respiratory exam: Present: normal lung sounds bilaterally. Absent: respiratory distress, wheezes, rales, rhonchi, stridor Cardiovascular Exam: Present: regular rate, normal rhythm, normal heart sounds. Absent: systolic murmur, diastolic murmur, rubs, gallop, clicks GI/Abdominal exam: Present: soft, normal bowel sounds. Absent: distended, tenderness, guarding, rebound, rigid Extremities exam: Present: normal inspection, full ROM, tenderness (Positive left knee tenderness specially on the medial, lateral and dorsal aspects. Negative laxity with Sherley's, varus/valgus. Positive pain with Jaswant's test. Negative overlying erythema, crepitus, deformity, Beal's cyst), normal capillary refill, other (LLE distal neurovascular and motor function intact. Posterior tibialis pulse +2, capillary refill less than 2 seconds.). Absent: pedal edema, joint swelling, calf tenderness Back exam: Present: normal inspection. Absent: CVA tenderness (R), CVA tenderness (L) Neurological exam: Present: alert, oriented X3, CN II-XII intact Psychiatric exam: Present: normal affect, normal mood Skin exam: Present: warm, dry, intact, normal color. Absent: rash Course Vital Signs 12/22/24 12/22/24 13:48 16:18 Temperature 97.9 F 98.1 F Pulse Rate 87 76 Respiratory 16 20 Rate Blood Pressure 151/73 148/69 O2 Sat by Pulse 96 100 Oximetry Medical Decision Making - Medical Decision Making Was pt. sent in by a medical professional or institution (Dr., PA, APPLIANCE ASSEMBLER, urgent care, hospital, or usp...) When possible be specific @ -No Did you speak to anyone other than the patient for history (EMS, parent, family, police, friend...)? What history was obtained from this source @ -No Did you review nursing and triage notes (agree or disagree)? Why? @ -I reviewed and agree with nursing and triage notes Were old charts reviewed (outside hosp., previous admission, EMS record, old EKG, old radiological studies, urgent care reports/EKG's, usp records)? Report findings @ -No old charts were reviewed Differential Diagnosis (chest pain, altered mental status, abdominal pain women, abdominal pain men, vaginal bleeding, weakness, fever, dyspnea, syncope, headache, dizziness, GI bleed, back pain, seizure, CVA, palpatations, mental health, musculoskeletal)? @ -Differential Musculoskeletal Muscular strain, contusion, ligament sprain, fracture, arthritis, septic arthritis, bursitis, cellulitis, muscle spasm, nerve compression, DVT, arterial occlusion, herpes zoster, electrolyte abnormality, tumor.... This is not meant to be in all inclusive list EKG interpreted by me (3pts min.). @ -Not done X-rays interpreted by me (1pt min.). @ -None done CT interpreted by me (1pt min.). @ -None done U/S interpreted by me (1pt. min.). @ -None done What testing was considered but not performed or refused? (CT, X-rays, U/S, labs)? Why? @ -Knee x-ray considered but with patient's ability to ambulate for the past month, unlikely to be obvious fracture/dislocation. What meds were considered but not given or refused? Why? @ -None Did you discuss the management of the patient with other professionals (professionals i.e. , PA, APPLIANCE ASSEMBLER, lab, RT, psych nurse, director of social media marketing, hospice case manager, teacher, probation officer, clinical case manager)? Give summary @ -No Was smoking cessation discussed for >3mins.? @ -No Was critical care preformed (if so, how long)? @ -No Were there social determinants of health that impacted care today? How? (Homelessness, low income, unemployed, alcoholism, drug addiction, transportation, low edu. Level, literacy, decrease access to med. care, correction, rehab)? @ -No Was there de-escalation of care discussed even if they declined (Discuss DNR or withdrawal of care, Hospice)? DNR status @ -No What co-morbidities impacted this encounter? (DM, HTN, Smoking, COPD, CAD, Cancer, CVA, ARF, Chemo, Hep., AIDS, mental health diagnosis, sleep apnea, morbid obesity)? @ -None Was patient admitted / discharged? Hospital course, mention meds given and route, prescriptions, significant lab abnormalities, going to OR and other pertinent info. @ -UA negative for UTI. Patient provided IM Toradol, Solu-Medrol and p.o. Tylenol for pain with pain relief noted by patient. Knee x-ray considered but patient able to ambulate for the past month indicating unlikely fracture or dislocation. Edgard wrap applied to knee and advised patient to follow-up with orthopedics for ongoing evaluation. Motrin 600 and prednisone sent to patient's pharmacy. Advised alternate Tylenol/Motrin every 4 hours for pain and RICE. Increase water and cranberry juice intake. Follow-up with PCP regarding urinary symptoms. Discussed patient with Dr. Pérez. Undiagnosed new problem with uncertain prognosis? @ -No Drug Therapy requiring intensive monitoring for toxicity (Heparin, Nitro, Insulin, Cardizem)? @ -No Were any procedures done? @ -No Diagnosis/symptom? @ -Knee pain, dysuria Acute, or Chronic, or Acute on Chronic? @ -Acute Uncomplicated (without systemic symptoms) or Complicated (systemic symptoms)? @ -Uncomplicated Side effects of treatment? @ -No Exacerbation, Progression, or Severe Exacerbation? @ -No Poses a threat to life or bodily function? How? (Chest pain, USA, NC, pneumonia, PE, COPD, DKA, ARF, appy, cholecystitis, CVA, Diverticulitis, Homicidal, S uicidal, threat to staff... and all critical care pts) @ -No - Lab Data Lab Results 12/22/24 Range/Units 14:28 Urine Color Colorless Urine Appearance Clear (Clear) Urine pH 5.0 (5.0-8.0) Ur Specific [place] 1.018 (1.001-1.035) Urine Protein Negative (Negative) Urine Glucose (UA) Negative (Negative) Urine Ketones Negative (Negative) Urine Blood Negative (Negative) Urine Nitrite Negative (Negative) Urine Bilirubin Negative (Negative) Urine Urobilinogen <2.0 (<2.0) mg/dL Ur Leukocyte Esterase Negative (Negative) Disposition Clinical Impression: Knee pain, left Disposition: HOME SELF-CARE Condition: Good Instructions (If sedation given, give patient instructions): Knee Pain (ED) Prescriptions: predniSONE [Deltasone] 20 mg PO DAILY #5 tab Ibuprofen [Motrin] 600 mg PO Q8HR PRN #20 tab PRN Reason: Pain Is patient prescribed a controlled substance at d/c from ED?: No Referrals: Kristina Lema MD [Primary Care Provider] - 1-2 days Time of Disposition: 16:00
[2024-12-22] MEDS: methylPREDNISolone SOD SUCCI 125 MG/2 ML VIAL IM ONE (14:38)
[2024-12-22] MEDS: KETOROLAC 15 MG/ML 1 ML VIAL IM STA (14:39)
[2024-12-22] MEDS: ACETAMINOPHEN TAB 500 MG TAB PO STA (14:39)
[2024-12-22 15:19] LABS: Appearance,Urine Clear (Clear); Bilirubin,Urine Negative (Negative); Blood,Urine Negative (Negative); Color,Urine Colorless; Glucose,Urine (UA) Negative (Negative); Ketones,Urine Negative (Negative); Leukocyte Esterase,Urine Negative (Negative); Nitrite,Urine Negative (Negative); Protein,Urine Negative (Negative); Specific Gravity,Urine 1.018 (1.001-1.035); Urobilinogen,Urine <2.0 mg/dL (<2.0)
[2024-12-22 16:20] VITALS: BP 148/69; PULSE 76; RESP 20; TEMP 98.1
== END 2024-12-22 16:20 | disposition home or self-care (01) ==
LOC: EC 13:18
DX: M25.562 Pain in left knee (principal); Z87.891 Personal history of nicotine dependence
CPT/HCPCS: 81003; 99283; 96372; J1885; J2919

== ENCOUNTER → 2024-12-27 | Outpatient (CLI) | payer MEDICARE ==
--- NOTE | 2024-12-27 17:04 | US ---
EXAMINATION TYPE: US venous doppler duplex LE LT DATE OF EXAM: 12/27/2024 4:41 PM COMPARISON: NONE CLINICAL INDICATION: Female, 69 years old with history of M25.562 EFFUSION, LEFT ANKLE; Pt twisted kn ee and heard a pop one month ago. Pain in left knee still., Pain TECHNIQUE: The lower extremity deep venous system is examined utilizing real time linear array sonog ruddy with graded compression, color doppler sonography, and spectral doppler. SIDE PERFORMED: Left FINDINGS: VESSELS IMAGED: Common Femoral Vein Deep Femoral Vein Greater Saphenous Vein * Femoral Vein Popliteal Vein Small Saphenous Vein * Proximal Calf Veins (* superficial vessels) Left Leg: No evidence for DVT. Cystic area seen in popliteal fossa measuring 2.1 x 1.4 x 1.0cm , Col or Doppler imaging shows patency of the vessels. Spectral waveforms are within normal limits. IMPRESSION: 1. No evidence of deep vein thrombosis of the left lower extremity. 2. Left popliteal fossa cyst. [facility], , 12/27/2024 5:02 PM
== END | disposition home or self-care (01) ==
LOC: RADUSWWP 16:23
PROVIDERS: ATTEND Family Medicine
DX: Z09 Encounter for follow-up examination after completed treatment for conditions other than malignant neoplasm (principal); M25.472 Effusion, left ankle; M71.22 Synovial cyst of popliteal space [Baker], left knee

== ENCOUNTER → 2025-03-02 | Outpatient (CLI) | payer MEDICARE ==
[2025-03-02 13:14] VITALS: BP 153/75; PULSE 79; RESP 16; TEMP 97.9
--- NOTE | 2025-03-02 13:23 | P.GSCN ---
History of Present Illness Consult date: 03/02/25 Reason for Consult: high Trena score Requesting physician: Kristina Lema History of present illness: Sallie is a 69-year-old female seen in consultation for Dr. Hugh Quinones regarding a high Trena risk score. She had a bilateral screening mammogram on 07-14-2024. This did not reveal any lesions of concern in the left breast but in the right breast there was an area of asymmetry. A diagnostic right breast luis eduardo mogram was performed on 07-26-2024. This was felt to be BI-RADS 3 and repeat right breast mammogram in 6 months was recommended. A repeat right breast mammogram on 12-29-2024 was done which was felt to be stable and BI-RADS 2. All of these radiographs were personally reviewed and interpreted. These findings were on a routine mammogram. The patient does not feel any lumps masses or nodules of concern in either breast. She is not complaining of any nipple discharge or skin changes. She has never had any surgery on her breast. Nicotine: none, stopped 14 years used to smoke 2PPD for about 40 years Caffeine: occasional Chocolate: dark occasional Hormones: none Trena score: 5-year risk: 3.2% Lifetime risk: 9.2% Family history: mother: vaginal cancer and breast cancer father: lung cancer Hormonal history: Menarche: 15 A1, age at first livebirth: 20, breast fed: no Menopause: hysterectomy in 's fibroid tumors, both ovaries removed Hormones: Surgical history: hysterectomy bilat. oophrectomy cyst on wrist tonsil Medical history: diabetic allergies HTN COPD Social history: Nicotine:none Alcohol:occasional Drugs: none Review of Systems - Constitutional Reports sweats - EENT Eyes: bilateral blurred vision (diabetic) Ears: bilateral: tinnitus Ears, nose, mouth and throat: Denies dysphagia - Breasts bilateral: as per HPI - Cardiovascular Reports shortness of breath, Denies chest pain - Respiratory Respiratory Comment(s): former smoker Reports as per HPI - Gastrointestinal Gastrointestinal Comment(s): rectal pain is going to have a colonoscopy Reports as per HPI - Genitourinary Genitourinary: Denies dysuria, Denies hematuria Menstruation: Reports as per HPI, Reports post hysterectomy - Musculoskeletal Musculoskeleta Comment(s): arthritis Reports as per HPI - Integumentary Denies rash, Denies unusual bruising - Neurological Reports headaches, Denies syncope - Psychiatric Reports anxiety, Reports depression - Endocrine Endocrine Comment(s): diabetes - Hematologic/Lymphatic Denies easy bleeding, Denies easy bruising - Allergic/Immunologic Reports seasonal allergies Past Medical History Past Medical History: COPD, Diabetes Mellitus, Hyperlipidemia, Hypertension History of Any Multi-Drug Resistant Organisms: None Reported Past Surgical History: Hysterectomy, Tonsillectomy Past Psychological History: Depression Smoking Status: Former smoker Past Alcohol Use History: Rare Past Drug Use History: None Reported Medications and Allergies Home Medications Medication Instructions Recorded Confirmed Type Atorvastatin [Lipitor] 10 mg PO DIRECTED 05/22/23 04/16/24 History FLUoxetine HCL [PROzac] 10 mg PO DAILY 05/22/23 04/16/24 History lisinopriL [Zestril] 10 mg PO HS 05/22/23 04/16/24 History metFORMIN HCL 1,000 mg PO BID 05/22/23 04/16/24 History Ketorolac [Toradol] 10 mg PO Q6HR PRN #15 tab 04/12/24 04/16/24 Rx Ondansetron Odt [Zofran ODT] 4 mg PO Q8HR PRN #15 tab 04/12/24 04/16/24 Rx Albuterol Inhaler [Ventolin Hfa 1 - 2 puff INHALATION RT-Q6H PRN 04/16/24 04/16/24 History Inhaler] Acetaminophen Tab [Tylenol] 650 mg PO Q6HR PRN tab 04/18/24 Rx Ibuprofen [Motrin] 600 mg PO Q8HR PRN #20 tab 12/22/24 Rx predniSONE [Deltasone] 20 mg PO DAILY #5 tab 12/22/24 Rx Allergies Allergy/AdvReac Type Severity Reaction Status Date / Time No Known Allergies Allergy Verified 04/16/24 08:53 Surgical - Exam - General no distress - Eyes normal ocular movement - ENT no hearing loss - Neck trachea midline - Respiratory normal respiratory effort, clear to auscultation - Cardiovascular Rhythm: regular Heart Sounds: normal: S1, S2 - Integumentary normal turgor - Neurologic no disoriented, no combative - Musculoskeletal normal gait, normal posture - Psychiatric oriented to time, oriented to person, oriented to place, speech is normal, memory intact Breast Exam: BRA: 38C Inspection: Right breast larger than left breast, bilateral grade 2/3 ptosis Palpation: Right breast: Multi positional exam fibrocystic changes no dominant masses or nodules of concern Right axilla: No adenopathy of concern Left breast: Multi positional exam fibrocystic changes no dominant masses or nodules of concern Left axilla: No adenopathy of concern Results Mammograms from 07-14-2024, 07-26-2024 and 12-29-2024 all personally reviewed and interpreted Assessment and Plan Assessment: Impression: Increased 5-year Trena risk 3.2% for breast cancer I have discussed chemoprophylaxis with the patient and at this time she would like to have close surveillance Plan: Close surveillance repeat bilateral mammogram in July 2025 with appointment at that time Patient to follow-up sooner any questions or concerns CC: Dr. Lema
== END ==
LOC: WWCWWP 12:49
PROVIDERS: ATTEND Surgery
DX: Z85.3 Personal history of malignant neoplasm of breast (principal)